=== PATIENT | male | born 1965 | race Caucasian/White ===

== ENCOUNTER 2016-09-21 14:09 | Observation (INO) | payer MEDICAID, OTHER ==
[2016-09-21 14:10] VITALS: PULSE 105
[2016-09-21 14:22] VITALS: BMI 42.8
[2016-09-21] MEDS ORDERED: Tetanus/Diphtheria Toxoids 0.5 ml Syringe IM ONE ×2 (15:11→16:22)
--- NOTE | 2016-09-21 15:27 | C.PDOC ---
History Of Present Illness 51 year old patient, with a past medical history of hypertension, A-fib, CHF, and bronchitis, presents to the ED complaining of an injury to his left index finger prior to arrival. Patient states he dropped a heavy object on his finger , then he had a sudden onset of chest pain. Patient denies shortness of breath, numbness, or weakness. Time Seen by Provider: 09/21/16 15:03 Chief Complaint (Nursing): Chest Pain History Per: Patient History/Exam Limitations: no limitations Onset/Duration Of Symptoms: Mins (prior to arrival) Current Symptoms Are (Timing): Still Present Context: Other Severity: Mild Pain Scale Rating Of: 3 Quality: "Pain" Modifying Factors: None Exacerbating Factors: None Alleviating Factors: None Recent travel outside of the [place]: No Past Medical History Reviewed: Historical Data, Nursing Documentation, Vital Signs Vital Signs: Last Vital Signs Temp 98.3 F 09/21/16 14:32 Pulse 94 H 09/21/16 17:25 Resp 18 09/21/16 17:25 BP 124/81 09/21/16 17:25 Pulse Ox 95 09/21/16 18:15 - Medical History PMH: Atrial Fibrillation, Bronchitis, CHF, HTN Surgical History: Pacemaker (03/04/16) Family History: States: Unknown Family Hx - Social History Hx Tobacco Use: No Hx Alcohol Use: Yes Hx Substance Use: Yes - Immunization History Hx Tetanus Toxoid Vaccination: Yes Hx Influenza Vaccination: Yes Hx Pneumococcal Vaccination: Yes Review Of Systems Except As Marked, All Systems Reviewed And Found Negative. Cardiovascular: Positive for: Chest Pain Respiratory: Negative for: Shortness of Breath Musculoskeletal: Positive for: Hand Pain (left index finger) Neurological: Negative for: Weakness, Numbness Physical Exam - Physical Exam Appears: Non-toxic, No Acute Distress Skin: Warm, Dry Head: Atraumatic, Normacephalic Eye(s): bilateral: Normal Inspection Oral Mucosa: Moist Neck: Normal ROM, Supple Chest: Symmetrical, No Tenderness Cardiovascular: Rhythm Regular Respiratory: Normal Breath Sounds, No Rales, No Rhonchi, No Wheezing Gastrointestinal/Abdominal: Soft, No Tenderness Back: Normal Inspection, No CVA Tenderness Extremity: Normal ROM, Capillary Refill (<2 seconds), Other (left index finger: 5 mm superficial laceration to the mid-phalanx; no deformities or swelling or active bleeding) Neurological/Psych: Oriented x3, Normal Motor, Normal Sensation Gait: Steady ED Course And Treatment - Laboratory Results Result Diagrams: 09/21/16 15:52 09/21/16 15:52 ECG: Interpreted By Me, Viewed By Me ECG Rhythm: Atrial Fibrillation Rate From EC (bpm) O2 Sat by Pulse Oximetry: 95 (room air) Pulse Ox Interpretation: Normal - Radiology CXR: Interpreted by Me, Viewed By Me CXR Interpretation: Yes: No Acute Disease - Other Rad left 2nd digit x-ray X-Ray: Interpreted by Me, Viewed By Me Interpretation: No fractures or dislocations Progress Note: Plan: Labs, Chest x-ray, Tetanus, Left 2nd digit x-ray. Wound was cleaned and dressed. Case discussed with Dr. Martinez who is aware of the plan and will admit the patient for tele-obs. 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 - Scribe Statement The provider has reviewed the documentation as recorded by the Scribe Ange Skelton All medical record entries made by the Scribe were at my direction and personally dictated by me. I have reviewed the chart and agree that the record accurately reflects my personal performance of the history, physical exam, medical decision making, and the department course for this patient. I have also personally directed, reviewed, and agree with the discharge instructions and disposition. Decision To Admit - Pt Status Changed To: Hospital Disposition Of: Observation - . Bed Request Type: Telemetry Admitting Physician: Zenon Martinez Jr. Patient Diagnosis: Chest pain, Finger injury, Afib
[2016-09-21 16:06] LABS: CHLORIDE 99 mmol/L (98-107)
[2016-09-21 16:07] LABS: POTASSIUM 4.1 mmol/L (3.6-5.2); SODIUM 140 mmol/L (132-148)
[2016-09-21 16:09] LABS: ALB/GLOB RATIO 1.3 (1.0-2.1); ALKALINE PHOSPHATASE 68 U/L (38-126); AST/SGOT 15 U/L (17-59); BILIRUBIN,TOTAL 0.6 mg/dL (0.2-1.3); BLOOD UREA NITROGEN 17 mg/dL (9-20); CARBON DIOXIDE 30 mmol/L (22-30); GFR AFRICAN-AMERICAN > 60; TOTAL PROTEIN 7.1 g/dL (6.3-8.3)
[2016-09-21 16:10] LABS: ALT/SGPT 21 U/L (21-72); CALCIUM 8.6 mg/dl (8.6-10.4); GLUCOSE,RANDOM 95 mg/dL (75-110)
[2016-09-21 16:14] LABS: BASO % 0.5 % (0.0-2.0); EOS # 0.2 K/uL (0.0-0.7); EOS % 2.1 % (0.0-4.0); HEMATOCRIT 44.2 % (35.0-51.0); LYMPH # 1.8 K/uL (1.0-4.3); LYMPH % 19.6 % (20.0-40.0); MEAN CELL VOLUME 80.8 fL (80.0-94.0); MEAN CORPUSCULAR HEMOGLOBIN 25.8 pg (27.0-31.0); MEAN CORPUSCULAR HGB CONC 31.9 g/dL (33.0-37.0); MEAN PLATELET VOLUME 8.1 fL (7.2-11.7); MONO # 0.7 K/uL (0.0-0.8); MONO % 7.7 % (0.0-10.0); NRBC % 0.1 % (0.0-2.0); WHITE BLOOD COUNT 9.4 K/uL (4.8-10.8)
--- NOTE | 2016-09-21 16:21 | RAD ---
PROCEDURE: CHEST RADIOGRAPH, 1 VIEW HISTORY: CP COMPARISON: 03/03/2016 FINDINGS: LUNGS: Clear. PLEURA: No pneumothorax or pleural fluid seen. CARDIOVASCULAR: AICD OSSEOUS STRUCTURES: No significant abnormalities. VISUALIZED UPPER ABDOMEN: Normal. OTHER FINDINGS: None. IMPRESSION: No active disease.
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
[2016-09-21 21:15] VITALS: RESP 20
[2016-09-22 04:32] LABS: BASO % 0.5 % (0.0-2.0); EOS # 0.2 K/uL (0.0-0.7); EOS % 2.9 % (0.0-4.0); HEMATOCRIT 44.7 % (35.0-51.0); LYMPH # 1.7 K/uL (1.0-4.3); LYMPH % 21.7 % (20.0-40.0); MEAN CELL VOLUME 80.8 fL (80.0-94.0); MEAN CORPUSCULAR HEMOGLOBIN 25.6 pg (27.0-31.0); MEAN CORPUSCULAR HGB CONC 31.7 g/dL (33.0-37.0); MEAN PLATELET VOLUME 8.1 fL (7.2-11.7); MONO # 0.6 K/uL (0.0-0.8); MONO % 7.2 % (0.0-10.0); RED CELL DISTRIBUTION WIDTH 15.3 % (11.5-14.5); WHITE BLOOD COUNT 7.9 K/uL (4.8-10.8)
[2016-09-22 04:42] LABS: CHLORIDE 99 mmol/L (98-107); POTASSIUM 3.9 mmol/L (3.6-5.2); SODIUM 140 mmol/L (132-148)
[2016-09-22 04:44] LABS: CARBON DIOXIDE 32 mmol/L (22-30); CHOLESTEROL 138 mg/dL (0-199); GFR AFRICAN-AMERICAN > 60
[2016-09-22 04:45] LABS: ALB/GLOB RATIO 1.3 (1.0-2.1); ALKALINE PHOSPHATASE 71 U/L (38-126); ALT/SGPT 25 U/L (21-72); AST/SGOT 15 U/L (17-59); BILIRUBIN,TOTAL 0.5 mg/dL (0.2-1.3); BLOOD UREA NITROGEN 15 mg/dL (9-20); CALCIUM 8.6 mg/dl (8.6-10.4); GLUCOSE,RANDOM 100 mg/dL (75-110)
--- NOTE | 2016-09-22 07:09 | CP.PCM.PN ---
Objective - Vital Signs/Intake and Output Vital Signs (last 24 hours): Temp Pulse Resp BP Pulse Ox 98.0 F 80 20 135/92 H 96 09/22/16 04:51 09/22/16 04:51 09/22/16 04:51 09/22/16 04:51 09/22/16 04:51 Intake and Output: 09/22/16 09/22/16 06:59 18:59 Intake Total 700 Balance 700 - Medications Medications: Current Medications Apixaban (Eliquis) 5 mg PO BID [facility] Last Admin: 09/21/16 19:50 Dose: 5 mg Digoxin (Lanoxin) 0.125 mg PO DAILY@1800 [facility] Diltiazem HCl (Cardizem) 60 mg PO QID [facility] Last Admin: 09/21/16 22:42 Dose: 60 mg Furosemide (Lasix) 20 mg PO DAILY [facility] Metoprolol Succinate (Toprol Xl) 100 mg PO DAILY [facility] Pantoprazole Sodium (Protonix Ec Tab) 40 mg PO DAILY [facility] - Labs Labs: 09/22/16 04:27 09/22/16 04:27 APTT 37 SECONDS (21-34) H 09/21/16 15:52
[2016-09-22 08:25] VITALS: PULSE 74; TEMP 97.4; O2SAT 100
[2016-09-22 09:16] VITALS: BP 143/87
--- NOTE | 2016-09-22 09:26 | RAD ---
Left hand 2nd digit three views History: Injury. Comparison: None available. Findings: Prominent soft tissue swelling seen at the level of the 2nd digit. No evidence of discrete radiopaque foreign body. Prominent narrowing of the DIP joint space with bony hypertrophy. Moderate narrowing of the PIP joint space with bony hypertrophy. Noted are degenerative changes at the 3rd through 5th PIP and DIP joint spaces. Radiocarpal joint space narrowing is noted. Impression: Degenerative changes. Negative acute. If pain persists, consider MRI.
[2016-09-22] MEDS ORDERED: Pantoprazole 40 mg EC Tab PO SCH (10:00)
[2016-09-22] MEDS ORDERED: Metoprolol Succinate 100 mg XL Tab PO SCH (10:00)
--- NOTE | 2016-09-22 12:03 | CP.PCM.DIS ---
Provider - Provider Date of Admission: 09/21/16 18:34 Attending physician: Zenon Martinez Jr, MD Primary care physician: Dr. Garcia Time Spent in preparation of Discharge (in minutes): 45 Hospital Course - Lab Results Lab Results: Most Recent Lab Values WBC 7.9 K/uL (4.8-10.8) 09/22/16 04:27 RBC 5.53 Mil/uL (4.40-5.90) 09/22/16 04:27 Hgb 14.2 g/dL (12.0-18.0) 09/22/16 04:27 Hct 44.7 % (35.0-51.0) 09/22/16 04:27 MCV 80.8 fL (80.0-94.0) 09/22/16 04:27 MCH 25.6 pg (27.0-31.0) L 09/22/16 04:27 MCHC 31.7 g/dL (33.0-37.0) L 09/22/16 04:27 RDW 15.3 % (11.5-14.5) H 09/22/16 04:27 Plt Count 151 K/uL (130-400) 09/22/16 04:27 MPV 8.1 fL (7.2-11.7) 09/22/16 04:27 Neut % (Auto) 67.7 % (50.0-75.0) 09/22/16 04:27 Lymph % (Auto) 21.7 % (20.0-40.0) 09/22/16 04:27 Cooper % (Auto) 7.2 % (0.0-10.0) 09/22/16 04:27 Eos % (Auto) 2.9 % (0.0-4.0) 09/22/16 04:27 Baso % (Auto) 0.5 % (0.0-2.0) 09/22/16 04:27 Neut # 5.3 K/uL (1.8-7.0) 09/22/16 04:27 Lymph # 1.7 K/uL (1.0-4.3) 09/22/16 04:27 Cooper # 0.6 K/uL (0.0-0.8) 09/22/16 04:27 Eos # 0.2 K/uL (0.0-0.7) 09/22/16 04:27 Baso # 0.0 K/uL (0.0-0.2) 09/22/16 04:27 APTT 37 SECONDS (21-34) H 09/21/16 15:52 Sodium 140 mmol/L (132-148) 09/22/16 04:27 Potassium 3.9 mmol/L (3.6-5.2) 09/22/16 04:27 Chloride 99 mmol/L (98-107) 09/22/16 04:27 Carbon Dioxide 32 mmol/L (22-30) H 09/22/16 04:27 Anion Gap 13 (10-20) 09/22/16 04:27 BUN 15 mg/dL (9-20) 09/22/16 04:27 Creatinine 0.8 MG/DL (0.8-1.5) 09/22/16 04:27 Est GFR ( Amer) > 60 09/22/16 04:27 Est GFR (Non-Af Amer) > 60 09/22/16 04:27 POC Glucose (mg/dL) 105 mg/dL (65-110) 09/22/16 11:19 Random Glucose 100 mg/dL (75-110) 09/22/16 04:27 Calcium 8.6 mg/dl (8.6-10.4) 09/22/16 04:27 Total Bilirubin 0.5 mg/dL (0.2-1.3) 09/22/16 04:27 AST 15 U/L (17-59) L 09/22/16 04:27 ALT 25 U/L (21-72) 09/22/16 04:27 Alkaline Phosphatase 71 U/L (38-126) 09/22/16 04:27 Total Creatine Kinase 57 U/L (55-170) 09/22/16 04:27 CK-MB (Mass) 0.64 ng/mL (0.0-3.38) 09/22/16 04:27 Troponin I < 0.0120 ng/mL (0.00-0.120) 09/21/16 15:52 Troponin I, Quant < 0.0120 ng/mL (0.00-0.120) 09/22/16 04:27 Total Protein 7.0 g/dL (6.3-8.3) 09/22/16 04:27 Albumin 3.9 g/dL (3.5-5.0) 09/22/16 04:27 Globulin 3.1 gm/dL (2.2-3.9) 09/22/16 04:27 Albumin/Globulin Ratio 1.3 (1.0-2.1) 09/22/16 04:27 Triglycerides 156 mg/dL (0-149) H 09/22/16 04:27 Cholesterol 138 mg/dL (0-199) 09/22/16 04:27 LDL Cholesterol Direct 82 mg/dL (0-129) 09/22/16 04:27 HDL Cholesterol 27 mg/dL (30-70) L 09/22/16 04:27 - Hospital Course Hospital Course: Upon Admission: 51 year old male with PMHx of CHF w AICD placement, chronic a.fib, IGT, sleep apnea presenting to the hospital after dropping a heavy object on his finger. He said the moment the object dropped on his finger, he began to feel substernal chest pain, sharp. He said it was only momentary, and he feels no pain now. He denies any palpitations, dyspnea. He reports he is compliant with his medication. Patient was admitted to TELE. Patient had negative KG and EKG x 3 and reported that chest pain had resolved in the ER. CXR was unremarkable and Hand x -ray showed no acute fractures. On day of discharge patient was deemed medically stable for discharge. 1) Chest pain: resolved 2) Atrial Fibrillation: chronic 3) Finger trauma: resolved Upon Discharge Patient stable for discharge home as per Dr. Martinez. Patient to resume all home medications. Patient to follow up with PMD Dr. Martinez within 7 days. Address: [address] [place] [address] [address] floor. [place] [id number] If symptoms persist or worsen patient to visit ER immediately. Instructions discussed in detail with patient who understands and agrees. Discharge Exam - Head Exam Head Exam: ATRAUMATIC, NORMAL INSPECTION, NORMOCEPHALIC - Eye Exam Eye Exam: EOMI, Normal appearance, PERRL. absent: Conjunctival injection, Scleral icterus Pupil Exam: NORMAL ACCOMODATION - ENT Exam ENT Exam: Mucous Membranes Moist - Neck Exam Neck exam: Full Rom, Normal Inspection - Respiratory Exam Respiratory Exam: Clear to PA & Lateral, NORMAL BREATHING PATTERN, UNREMARKABLE. absent: Accessory Muscle Use, Rales, Rhonchi, Wheezes, Respiratory Distress - Cardiovascular Exam Cardiovascular Exam: Irregular Rhythm, +S1, +S2. absent: Bradycardia, Tachycardia, Systolic Murmur - GI/Abdominal Exam GI & Abdominal Exam: Normal Bowel Sounds, Soft. absent: Firm, Guarding, Rigid, Tenderness - Extremities Exam Extremities exam: normal capillary refill, normal inspection, pedal pulses present Additional comments: left index finger wrapped in gauze- c/d/i - Back Exam Back exam: FULL ROM, NORMAL INSPECTION. absent: CVA tenderness (L), CVA tenderness (R), tenderness - Neurological Exam Neurological exam: Alert, CN II-XII Intact, Normal Gait, Oriented x3 - Psychiatric Exam Psychiatric exam: Normal Affect, Normal Mood - Skin Skin Exam: Dry, Intact, Normal Color, Warm Discharge Plan - Follow Up Plan Condition: FAIR Disposition: HOME/ ROUTINE Instructions: Heart Failure (DC), Chest Pain (DC), Heart Healthy Diet (DC) Additional Instructions: Patient stable for discharge home as per Dr. Martinez. Patient to resume all home medications. Patient to follow up with PMD Dr. Martinez within 7 days. Address: [address] [place] [address] [address]rd floor. [place] [phone] If symptoms persist or worsen patient to visit ER immediately. Instructions discussed in detail with patient who understands and agrees. Referrals: Zenon Martinez Jr., MD [Medical Doctor] -
[2016-09-22] MEDS ORDERED: Digoxin 125 mcg (0.125 mg) Tab PO SCH (18:00)
--- NOTE | 2016-09-23 08:50 | CARD ---
APPROVED REPORT EKG Measurement Heart [id number] <Conclusion> Atrial fibrillation Nonspecific T wave abnormality Abnormal ECG
== END 2016-09-22 13:18 | disposition home or self-care (01) ==
LOC: C.ER 14:09 → C.9E 18:34 → C.6T 19:46
PROVIDERS: ADMIT Internal Medicine; ATTEND Internal Medicine
DX: R07.9 Chest pain, unspecified (principal); I48.2 Chronic atrial fibrillation; I11.0 Hypertensive heart disease with heart failure; I50.9 Heart failure, unspecified; Z87.891 Personal history of nicotine dependence; Z95.810 Presence of automatic (implantable) cardiac defibrillator; Z23 Encounter for immunization; G47.30 Sleep apnea, unspecified; E66.01 Morbid (severe) obesity due to excess calories; Z68.41 Body mass index [BMI] 40.0-44.9, adult; S67.191A Crushing injury of left index finger, initial encounter; X58.XXXA Exposure to other specified factors, initial encounter
CPT/HCPCS: 36415; 71010; 73140; 80053; 80061; 82550; 82948; 83036; 84484; 85025; 85730; 90471; 90714; 93005; 99285; G0378

== ENCOUNTER 2016-12-08 14:54 | Observation (INO) | payer OTHER | END 2016-12-09 18:15 | disposition home or self-care (01) | LOC: C.ER 14:54 → C.9E 19:10 → C.6T 20:46 | PROVIDERS: ADMIT Hospitalist | CPT/HCPCS: 36415; 71010; 80053; 80061; 81001; 83036; 83735; 83880; 84100; 84439; 84443; 84484; 85025; 85610; 85730; 93005; 93306; 94640; 94660; 96374; 97116; 97161; 97530; 99285; G0378; G8978; G8979; G8980; J1940 ==

== ENCOUNTER 2017-07-09 14:21 | Emergency (ER) | payer MEDICAID ==
[2017-07-09 14:22] VITALS: PULSE 105; BMI 44.6
[2017-07-09 14:37] VITALS: RESP 20
[2017-07-09] MEDS ORDERED: DiphenhydrAMINE 50 mg/ml Inj IVP STA (15:53)
[2017-07-09] MEDS ORDERED: DiphenhydrAMINE 50 mg/ml Inj ONE (16:00)
--- NOTE | 2017-07-09 16:09 | C.PDOC ---
History Of Present Illness 51 y/o male with a PMHx of obstructive sleep apnea and congestive heart failure , presents complaining of a right-sided headache, radiating to neck and right upper arm for 1 month. Headache had gradual onset, no thunder clap. Not the worst headache of his life. Patient reports he was seen at an ER about 1 month ago and was diagnosed with strain of the upper neck. Also reports having numbness to right upper arm. Taking Tylenol without relief. Pain is described as constant. Denies any loss in vision, recent URI symptoms, chest pain, or focal weakness. Time Seen by Provider: 07/09/17 15:08 Chief Complaint (Nursing): Weakness/Neurological Deficit History Per: Patient History/Exam Limitations: no limitations Onset/Duration Of Symptoms: Days (x 1 month) Current Symptoms Are (Timing): Still Present Past Medical History Reviewed: Historical Data, Nursing Documentation, Vital Signs Vital Signs: Last Vital Signs Temp 98.9 F 07/09/17 14:33 Pulse 89 07/09/17 14:33 Resp 20 07/09/17 14:33 BP 122/77 07/09/17 14:33 Pulse Ox 95 07/09/17 17:33 - Medical History PMH: Atrial Fibrillation, Bronchitis, CHF, HTN, Sleep Apnea Denies: Chronic Kidney Disease Surgical History: Pacemaker (03/04/16) Family History: States: Unknown Family Hx - Social History Hx Tobacco Use: No Hx Alcohol Use: No Hx Substance Use: Yes ([id number]) - Immunization History Hx Tetanus Toxoid Vaccination: Yes Hx Influenza Vaccination: Yes (8 months ago) Hx Pneumococcal Vaccination: Yes (8 months) Review Of Systems Except As Marked, All Systems Reviewed And Found Negative. Eyes: Negative for: Vision Change ENT: Negative for: Nose Congestion, Throat Pain Cardiovascular: Negative for: Chest Pain Respiratory: Negative for: Cough, Shortness of Breath Musculoskeletal: Positive for: Neck Pain (right-sided), Arm Pain (right arm pain and numbness) Neurological: Positive for: Headache (right-sided). Negative for: Weakness Physical Exam - Physical Exam Appears: Non-toxic, No Acute Distress Skin: Normal Color, Warm, Dry Head: Atraumatic, Normacephalic Eye(s): bilateral: Normal Inspection, PERRL, EOMI Nose: Normal Oral Mucosa: Moist Neck: Normal ROM, Paracervical Tenderness (and muscle spasm to the right trapezius), Supple Chest: Symmetrical Cardiovascular: Rhythm Regular, No Murmur Respiratory: Normal Breath Sounds, No Accessory Muscle Use Gastrointestinal/Abdominal: Soft, No Tenderness, No Distention Extremity: Bilateral: Atraumatic, Normal Color And Temperature, Normal ROM Neurological/Psych: Oriented x3, Normal Speech, Normal Cranial Nerves, Normal Motor, Normal Sensation, No Other (facial droop) Gait: Steady ED Course And Treatment O2 Sat by Pulse Oximetry: 95 (RA) Pulse Ox Interpretation: Normal - Other Rad C-Spine X-Ray X-Ray: Viewed By Me, Read By Radiologist Interpretation: FINDINGS: BONES: The cervical spine is not well-visualized beyond C6 on lateral view. Straightening of the normal cervical lordosis may be related to muscle spasm or positioning. Multilevel degenerative changes including osteophyte formation. No listhesis. No acute displaced fracture identified. Dens tip partially obscured. DISC SPACES: Unremarkable. SOFT TISSUES: Unremarkable. No prevertebral soft tissue swelling. OTHER FINDINGS: None. IMPRESSION: Limited study as above. Straightening of the normal cervical lordosis may be related to muscle spasm or positioning. - CT Scan/US CT Head Other Rad Studies (CT/US): Read By Radiologist, Radiology Report Reviewed CT/US Interpretation: FINDINGS: HEMORRHAGE: No intracranial hemorrhage. BRAIN : No mass effect or edema. No atrophy or chronic microvascular ischemic changes. VENTRICLES: Unremarkable. No hydrocephalus. CALVARIUM: Unremarkable. PARANASAL SINUSES: Mild chronic ethmoid sinusitis. Small left maxillary retention cyst/polyp. MASTOID AIR CELLS: Unremarkable as visualized. No inflammatory changes. OTHER FINDINGS: None. IMPRESSION: No intracranial mass, hemorrhage or evidence of acute infarct. Mild chronic ethmoid sinusitis. Medical Decision Making Medical Decision Making: Initial Impression: Headache, Neck pain Time: 15:51 Initial Plan: * Reglan 10 mg IVP * Benadryl 25 mg IVP * X-ray cervical spine * CT Head W/O contrast * Reevaluation Patient informed of negative imaging results. 17:21 On reevaluation patient reports he feels better. Counseled regarding diagnosis of headache and cervical radiculopathy. Will d/c patient with follow up at the medical clinic in 2 days. Advised to return to the ED if symptoms worsen or progress. Disposition Counseled Patient/Family Regarding: Studies Performed, Diagnosis, Need For Followup, Rx Given - Disposition Referrals: Kylie Garcia MD [Staff Provider] - Disposition: HOME/ ROUTINE Disposition Time: 17:21 Condition: STABLE Additional Instructions: follow up with clinic in 2 days call to make an appointment take medications as prescribed return to ER if symptoms worsens or progress Prescriptions: Acetaminophen/Codeine [Tylenol/Codeine 300 MG/30 MG] 1 tab PO Q6H PRN #12 tab PRN Reason: Pain, Severe (8-10) Cyclobenzaprine [Cyclobenzaprine HCl] 10 mg PO TID PRN #12 tab PRN Reason: Muscle Spasm Naproxen [Naprosyn] 500 mg PO BID PRN #16 tab PRN Reason: Pain, Moderate (4-7) Instructions: Radiculopathy (DC), Headache, Adult (DC) Forms: Gen Discharge Inst [place], [employer] ([place]) Print Language: BRITISH - Clinical Impression Clinical Impression: Cervical radiculopathy, Headache - Scribe Statement The provider has reviewed the documentation as recorded by the Kenrick Sharpe Provider Attestation: All medical record entries made by the Kenrick were at my direction and personally dictated by me. I have reviewed the chart and agree that the record accurately reflects my personal performance of the history, physical exam, medical decision making, and the department course for this patient. I have also personally directed, reviewed, and agree with the discharge instructions and disposition.
--- NOTE | 2017-07-09 16:36 | CT ---
PROCEDURE: CT HEAD WITHOUT CONTRAST. HISTORY: headache COMPARISON: None available. TECHNIQUE: Axial computed tomography images were obtained through the head/brain without intravenous contrast. Radiation dose: Total exam DLP = 1372.47 mGy-cm. This CT exam was performed using one or more of the following dose reduction techniques: Automated exposure control, adjustment of the mA and/or kV according to patient size, and/or use of iterative reconstruction technique. FINDINGS: HEMORRHAGE: No intracranial hemorrhage. BRAIN: No mass effect or edema. No atrophy or chronic microvascular ischemic changes. VENTRICLES: Unremarkable. No hydrocephalus. CALVARIUM: Unremarkable. PARANASAL SINUSES: Mild chronic ethmoid sinusitis. Small left maxillary retention cyst/polyp. MASTOID AIR CELLS: Unremarkable as visualized. No inflammatory changes. OTHER FINDINGS: None. IMPRESSION: No intracranial mass, hemorrhage or evidence of acute infarct. Mild chronic ethmoid sinusitis.
--- NOTE | 2017-07-09 17:15 | RAD ---
PROCEDURE: Cervical Spine Radiographs. HISTORY: Pain. COMPARISON: None available. FINDINGS: BONES: The cervical spine is not well-visualized beyond C6 on lateral view. Straightening of the normal cervical lordosis may be related to muscle spasm or positioning. Multilevel degenerative changes including osteophyte formation. No listhesis. No acute displaced fracture identified. Dens tip partially obscured. DISC SPACES: Unremarkable. SOFT TISSUES: Unremarkable. No prevertebral soft tissue swelling. OTHER FINDINGS: None. IMPRESSION: Limited study as above. Straightening of the normal cervical lordosis may be related to muscle spasm or positioning.
[2017-07-09 17:37] VITALS: BP 127/72; PULSE 80; TEMP 98.4
[2017-07-12 15:46] VITALS: O2SAT 95
== END 2017-07-09 17:38 | disposition home or self-care (01) ==
LOC: C.ER 14:21
DX: M54.12 Radiculopathy, cervical region (principal); R51 Headache; I48.91 Unspecified atrial fibrillation; I50.9 Heart failure, unspecified; I10 Essential (primary) hypertension; G47.33 Obstructive sleep apnea (adult) (pediatric)
CPT/HCPCS: 70450; 72040; 96374; 96375; 99285; J1200; J1885; J2765

== ENCOUNTER 2017-07-20 10:12 | Inpatient (IN) | payer MEDICAID ==
[2017-07-20 10:13] VITALS: PULSE 105; BMI 44.6
[2017-07-20] MEDS ORDERED: Aspirin 325 mg EC Tablets PO STA (10:24)
[2017-07-20 10:44] LABS: BASO # 0.1 K/uL (0.0-0.2); BASO % 0.9 % (0.0-2.0); EOS # 0.1 K/uL (0.0-0.7); EOS % 1.5 % (0.0-4.0); HEMOGLOBIN 15.8 g/dL (12.0-18.0); LYMPH # 1.8 K/uL (1.0-4.3); LYMPH % 18.7 % (20.0-40.0); MEAN CELL VOLUME 82.2 fL (80.0-94.0); MEAN CORPUSCULAR HEMOGLOBIN 26.5 pg (27.0-31.0); MEAN CORPUSCULAR HGB CONC 32.3 g/dL (33.0-37.0); MONO # 0.7 K/uL (0.0-0.8); MONO % 7.1 % (0.0-10.0); NEUT # 6.8 K/uL (1.8-7.0); NEUT % 71.8 % (50.0-75.0); NRBC % 0.1 % (0.0-2.0); RBC 5.97 Mil/uL (4.40-5.90); RED CELL DISTRIBUTION WIDTH 14.7 % (11.5-14.5); WHITE BLOOD COUNT 9.5 K/uL (4.8-10.8)
--- NOTE | 2017-07-20 10:59 | RAD ---
PROCEDURE: CHEST RADIOGRAPH, 1 VIEW HISTORY: Chest pain COMPARISON: 12/08/2016. FINDINGS: LUNGS: The lungs are well inflated and clear. No focal consolidation. PLEURA: No pneumothorax or pleural fluid seen. CARDIOVASCULAR: Again seen is mild cardiomegaly. There is a left-sided AICD. OSSEOUS STRUCTURES: No significant abnormalities. VISUALIZED UPPER ABDOMEN: Normal. OTHER FINDINGS: None. IMPRESSION: No acute findings.
[2017-07-20 11:06] LABS: ALB/GLOB RATIO 1.2 (1.0-2.1); ALBUMIN 4.2 g/dL (3.5-5.0); ALT/SGPT 42 U/L (21-72); AST/SGOT 26 U/L (17-59); BLOOD UREA NITROGEN 15 mg/dL (9-20); CALCIUM 8.9 mg/dl (8.6-10.4); GFR AFRICAN-AMERICAN > 60; GFR NON-AFRICAN AMERICAN > 60
[2017-07-20 11:17] LABS: B-TYPE NATRIURETIC PEPTIDE 830 pg/mL (0-900)
[2017-07-20] MEDS ORDERED: Potassium Chloride 20 mEq ER Tab PO STA (12:50)
[2017-07-20] MEDS ORDERED: Potassium Chloride 20 mEq ER Tab PO ONE (12:54)
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
--- NOTE | 2017-07-20 15:16 | C.PDOC ---
History Of Present Illness 51-year-old male, PMHx includes sleep apnea, atrial fibrillation and systolic heart failure requiring pacemaker placement, presents to the emergency department with complaints of being shocked 3x this morning by his pacemaker. He denies fevers, chills, nausea, vomiting, chest pain, shortness of breath, diarrhea. Time Seen by Provider: 07/20/17 10:23 Chief Complaint (Nursing): Chest Pain History Per: Patient History/Exam Limitations: no limitations Past Medical History Reviewed: Historical Data, Nursing Documentation, Vital Signs Vital Signs: Last Vital Signs Temp 98.1 F 07/21/17 04:02 Pulse 84 07/21/17 04:31 Resp 20 07/21/17 04:02 BP 131/90 07/21/17 04:02 Pulse Ox 97 07/21/17 08:10 - Medical History PMH: Atrial Fibrillation, Bronchitis, CHF, HTN, Sleep Apnea Surgical History: Pacemaker (03/04/16) Family History: States: No Known Family Hx - Social History Hx Tobacco Use: No Hx Alcohol Use: Yes Hx Substance Use: Yes ([id number]) - Immunization History Hx Tetanus Toxoid Vaccination: Yes Hx Influenza Vaccination: Yes (8 months ago) Hx Pneumococcal Vaccination: Yes (8 months) Review Of Systems Except As Marked, All Systems Reviewed And Found Negative. Constitutional: Negative for: Fever Cardiovascular: Negative for: Chest Pain Respiratory: Negative for: Cough, Shortness of Breath Gastrointestinal: Negative for: Vomiting Musculoskeletal: Negative for: Neck Pain, Back Pain Skin: Negative for: Rash Neurological: Negative for: Weakness, Numbness, Headache, Dizziness Physical Exam - Physical Exam Appears: Non-toxic, No Acute Distress Skin: Normal Color, Warm, Dry, No Rash Head: Normacephalic Eye(s): bilateral: PERRL Nose: Normal Oral Mucosa: Moist Lips: Normal Appearing Neck: Normal ROM Chest: Symmetrical Cardiovascular: Rhythm Regular, No Murmur Respiratory: Normal Breath Sounds, No Accessory Muscle Use Extremity: Normal ROM, No Deformity, No Swelling Neurological/Psych: Oriented x3, Normal Speech ED Course And Treatment - Laboratory Results Result Diagrams: 07/20/17 10:31 07/20/17 10:31 ECG: Interpreted By Me, Viewed By Me ECG Rhythm: Sinus Tachycardia ECG Interpretation: No Acute Changes Interpretation Of ECG: Normal intervals. Left atrial enlargement. ST segment depression, V4-V6 Rate From EC O2 Sat by Pulse Oximetry: 97 (RA) Pulse Ox Interpretation: Normal Medical Decision Making Medical Decision Making: case discussed with Dr. Yomaira Skelton and Dr. Del Valle and will admit to telemetry. Disposition Discussed With DrAlecia: Gregorio Skelton Counseled Patient/Family Regarding: Studies Performed, Diagnosis - Disposition Disposition: HOSPITALIZED Disposition Time: 12:55 Condition: FAIR - Clinical Impression Clinical Impression: Defibrillator discharge - Scribe Statement The provider has reviewed the documentation as recorded by the Scribe (Gianni Hernandez) All medical record entries made by the Scribe were at my direction and personally dictated by me. I have reviewed the chart and agree that the record accurately reflects my personal performance of the history, physical exam, medical decision making, and the department course for this patient. I have also personally directed, reviewed, and agree with the discharge instructions and disposition.
[2017-07-20 18:01] LABS: CK-MB 2.95 ng/mL (0.0-3.38)
[2017-07-20 23:20] LABS: TROPONIN I 0.068 ng/mL (0.00-0.120)
[2017-07-20 23:32] LABS: CK-MB 1.63 ng/mL (0.0-3.38)
[2017-07-21 06:47] LABS: BARBITURATES, UR NEGATIVE (NEGATIVE); BENZODIAZEPINES, UR NEGATIVE (NEGATIVE); OPIATES, UR NEGATIVE (NEGATIVE); PHENCYCLIDINE, UR NEGATIVE (NEGATIVE)
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
[2017-07-21] MEDS: Metoprolol Succinate 100 mg XL Tab PO SCH (09:39)
[2017-07-21 11:05] LABS: BASO % 0.4 % (0.0-2.0); EOS # 0.2 K/uL (0.0-0.7); EOS % 1.8 % (0.0-4.0); HEMOGLOBIN 15.4 g/dL (12.0-18.0); LYMPH # 1.8 K/uL (1.0-4.3); LYMPH % 21.6 % (20.0-40.0); MEAN CELL VOLUME 81.4 fL (80.0-94.0); MEAN CORPUSCULAR HEMOGLOBIN 26.6 pg (27.0-31.0); MEAN CORPUSCULAR HGB CONC 32.6 g/dL (33.0-37.0); MEAN PLATELET VOLUME 8.2 fL (7.2-11.7); MONO # 0.7 K/uL (0.0-0.8); NEUT # 5.8 K/uL (1.8-7.0); NEUT % 68.2 % (50.0-75.0); RBC 5.81 Mil/uL (4.40-5.90); RED CELL DISTRIBUTION WIDTH 15.2 % (11.5-14.5); WHITE BLOOD COUNT 8.5 K/uL (4.8-10.8)
[2017-07-21 11:33] LABS: ALB/GLOB RATIO 1.1 (1.0-2.1); ALBUMIN 4.3 g/dL (3.5-5.0); ALT/SGPT 29 U/L (21-72); AST/SGOT 28 U/L (17-59); BLOOD UREA NITROGEN 16 mg/dL (9-20); GFR AFRICAN-AMERICAN > 60; GFR NON-AFRICAN AMERICAN > 60
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
[2017-07-21] MEDS ORDERED: Potassium Chloride 20 mEq ER Tab PO ONE (12:45)
--- NOTE | 2017-07-21 23:32 | CARD ---
APPROVED REPORT EKG Measurement Heart [id number] <Conclusion> Sinus tachycardia Possible Left atrial enlargement ST & T wave abnormality, consider lateral ischemia Abnormal ECG
[2017-07-22 07:19] LABS: BASO % 0.5 % (0.0-2.0); EOS # 0.2 K/uL (0.0-0.7); EOS % 2.2 % (0.0-4.0); HEMOGLOBIN 15.7 g/dL (12.0-18.0); LYMPH # 1.9 K/uL (1.0-4.3); LYMPH % 22.9 % (20.0-40.0); MEAN CORPUSCULAR HEMOGLOBIN 26.9 pg (27.0-31.0); MEAN CORPUSCULAR HGB CONC 32.4 g/dL (33.0-37.0); MEAN PLATELET VOLUME 8.2 fL (7.2-11.7); MONO # 0.6 K/uL (0.0-0.8); MONO % 7.7 % (0.0-10.0); NEUT # 5.4 K/uL (1.8-7.0); NEUT % 66.7 % (50.0-75.0); NRBC % 0.3 % (0.0-2.0); RBC 5.84 Mil/uL (4.40-5.90); RED CELL DISTRIBUTION WIDTH 15.3 % (11.5-14.5); WHITE BLOOD COUNT 8.1 K/uL (4.8-10.8)
[2017-07-22 07:38] LABS: ALB/GLOB RATIO 1.1 (1.0-2.1); ALBUMIN 4.2 g/dL (3.5-5.0); ALT/SGPT 30 U/L (21-72); AST/SGOT 31 U/L (17-59); BLOOD UREA NITROGEN 15 mg/dL (9-20); CALCIUM 8.7 mg/dl (8.6-10.4); GFR AFRICAN-AMERICAN > 60; GFR NON-AFRICAN AMERICAN > 60
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
[2017-07-22 08:24] VITALS: RESP 20
[2017-07-22] MEDS: Metoprolol Succinate 100 mg XL Tab PO SCH (10:19)
[2017-07-22] MEDS: Enoxaparin 40 mg Syringe SC SCH (10:19)
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
[2017-07-23 07:02] LABS: BASO # 0.1 K/uL (0.0-0.2); BASO % 0.8 % (0.0-2.0); EOS # 0.2 K/uL (0.0-0.7); EOS % 2.3 % (0.0-4.0); LYMPH # 1.5 K/uL (1.0-4.3); LYMPH % 18.3 % (20.0-40.0); MEAN CELL VOLUME 81.7 fL (80.0-94.0); MEAN CORPUSCULAR HEMOGLOBIN 26.8 pg (27.0-31.0); MEAN CORPUSCULAR HGB CONC 32.8 g/dL (33.0-37.0); MEAN PLATELET VOLUME 7.9 fL (7.2-11.7); MONO # 0.7 K/uL (0.0-0.8); MONO % 7.8 % (0.0-10.0); NEUT % 70.8 % (50.0-75.0); RBC 5.62 Mil/uL (4.40-5.90); RED CELL DISTRIBUTION WIDTH 14.7 % (11.5-14.5); WHITE BLOOD COUNT 8.4 K/uL (4.8-10.8)
[2017-07-23 07:09] LABS: INR 1.2; PROTHROMBIN TIME 13.6 SECONDS (9.7-12.2)
[2017-07-23 07:33] LABS: ALB/GLOB RATIO 1.2 (1.0-2.1); ALBUMIN 4.2 g/dL (3.5-5.0); ALT/SGPT 41 U/L (21-72); AST/SGOT 20 U/L (17-59); BLOOD UREA NITROGEN 15 mg/dL (9-20); CALCIUM 8.9 mg/dl (8.6-10.4); GFR AFRICAN-AMERICAN > 60; GFR NON-AFRICAN AMERICAN > 60
[2017-07-23] MEDS ORDERED: Verapamil 2 ML ONE (07:41)
[2017-07-23] MEDS ORDERED: Nitroglycerin 50mg in D5W 50 MG/250 ML BOTTLE IV ONE (07:42)
[2017-07-23] MEDS ORDERED: Lidocaine 4% (Laryng-O-Jet) Kit MM ONE (07:44)
[2017-07-23] MEDS ORDERED: Midazolam 2 MG/2 ML VIAL ONE (07:48)
[2017-07-23] MEDS ORDERED: Iodixanol 320 MG/ML 200 ML BOTTLE IV ONE (07:51)
[2017-07-23 07:58] VITALS: PULSE 92; TEMP 98.7; O2SAT 97
--- NOTE | 2017-07-23 08:49 | CP.PCM.PN ---
Subjective - Date & Time of Evaluation Date of Evaluation: 07/23/17 Time of Evaluation: 08:48 - Subjective Subjective: Patient s/p LHC 1. Normal Coronaries 2. EF 20% Non ischemic cardiomyopathy Medical management Objective - Vital Signs/Intake and Output Vital Signs (last 24 hours): Temp Pulse Resp BP Pulse Ox 98.7 F 92 H 20 137/89 97 07/23/17 06:45 07/23/17 06:45 07/23/17 06:45 07/23/17 06:45 07/23/17 06:45 Intake and Output: 07/23/17 07/23/17 06:59 18:59 Intake Total 240 Balance 240 - Medications Medications: Current Medications Acetaminophen (Tylenol 325mg Tab) 650 mg PO Q6 PRN PRN Reason: Pain, moderate (4-7) Amiodarone HCl (Cordarone) 200 mg PO BID [facility] Last Admin: 07/22/17 17:26 Dose: 200 mg Aspirin (Ecotrin) 81 mg PO DAILY [facility] Last Admin: 07/22/17 10:19 Dose: 81 mg Docusate Sodium (Colace) 100 mg PO DAILY [facility] Last Admin: 07/22/17 10:19 Dose: 100 mg Enoxaparin Sodium (Lovenox) 40 mg SC DAILY [facility] Last Admin: 07/22/17 10:19 Dose: 40 mg Furosemide (Lasix) 20 mg PO DAILY [facility] Last Admin: 07/22/17 10:19 Dose: 20 mg Hydrocortisone (Anusol-Hc) 25 mg RC BID [facility] Last Admin: 07/22/17 17:26 Dose: Not Given Lisinopril (Zestril) 5 mg PO DAILY [facility] Last Admin: 07/22/17 10:19 Dose: 5 mg Metoprolol Succinate (Toprol Xl) 100 mg PO DAILY [facility] Last Admin: 07/22/17 10:19 Dose: 100 mg - Labs Labs: 07/23/17 06:58 07/23/17 06:58 PT 13.6 SECONDS (9.7-12.2) H 07/23/17 06:58 INR 1.2 07/23/17 06:58
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
[2017-07-23] MEDS: Enoxaparin 40 mg Syringe SC SCH (11:05)
[2017-07-23] MEDS: Metoprolol Succinate 100 mg XL Tab PO SCH ×2 (11:05→13:50)
[2017-07-23 13:52] VITALS: BP 143/88
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
== END 2017-07-23 14:32 | disposition home or self-care (01) | DRG 543 ==
LOC: C.ER 10:12 → C.9E 12:17 → C.6T 13:03 → OBSVTOIN 07-21 11:30 → C.6T 07-22 21:56
PROVIDERS: ADMIT Family Medicine; ATTEND Family Medicine
PROC: 4A023N7 Measurement of Cardiac Sampling and Pressure, Left Heart, Percutaneous Approach (ICD-10-PCS; principal; 2017-07-21)
PROC: B2111ZZ Fluoroscopy of Multiple Coronary Arteries using Low Osmolar Contrast (ICD-10-PCS; 2017-07-21)
DX: I42.0 Dilated cardiomyopathy (principal); I50.22 Chronic systolic (congestive) heart failure; I47.2 Ventricular tachycardia; I11.0 Hypertensive heart disease with heart failure; Z68.41 Body mass index [BMI] 40.0-44.9, adult; E87.6 Hypokalemia; I48.91 Unspecified atrial fibrillation; K59.00 Constipation, unspecified; K64.4 Residual hemorrhoidal skin tags; Z79.01 Long term (current) use of anticoagulants; G47.30 Sleep apnea, unspecified; Z87.891 Personal history of nicotine dependence; Z95.0 Presence of cardiac pacemaker; Z95.810 Presence of automatic (implantable) cardiac defibrillator; E78.5 Hyperlipidemia, unspecified; F12.90 Cannabis use, unspecified, uncomplicated; G47.00 Insomnia, unspecified

== ENCOUNTER 2017-08-20 09:21 | Emergency (ER) | payer MEDICAID ==
[2017-08-20 09:21] VITALS: PULSE 105; BMI 47.0
[2017-08-20 09:27] VITALS: O2SAT 95
[2017-08-20] MEDS ORDERED: Sodium Chloride 0.9% 500 ML IV ONE ×2 (09:44→10:02)
[2017-08-20 10:19] LABS: BASO % 0.5 % (0.0-2.0); EOS # 0.2 K/uL (0.0-0.7); EOS % 2.8 % (0.0-4.0); HEMOGLOBIN 14.4 g/dL (12.0-18.0); LYMPH # 1.3 K/uL (1.0-4.3); LYMPH % 20.6 % (20.0-40.0); MEAN CELL VOLUME 82.3 fL (80.0-94.0); MEAN CORPUSCULAR HEMOGLOBIN 26.8 pg (27.0-31.0); MEAN CORPUSCULAR HGB CONC 32.6 g/dL (33.0-37.0); MEAN PLATELET VOLUME 7.7 fL (7.2-11.7); MONO # 0.4 K/uL (0.0-0.8); MONO % 5.7 % (0.0-10.0); NEUT # 4.5 K/uL (1.8-7.0); NEUT % 70.4 % (50.0-75.0); RBC 5.36 Mil/uL (4.40-5.90); RED CELL DISTRIBUTION WIDTH 14.8 % (11.5-14.5); WHITE BLOOD COUNT 6.4 K/uL (4.8-10.8)
[2017-08-20 10:25] LABS: INR 1.1; PROTHROMBIN TIME 12.8 SECONDS (9.7-12.2)
[2017-08-20 10:37] LABS: ALB/GLOB RATIO 1.2 (1.0-2.1); ALBUMIN 4.1 g/dL (3.5-5.0); ALT/SGPT 28 U/L (21-72); AST/SGOT 27 U/L (17-59); BLOOD UREA NITROGEN 13 mg/dL (9-20); GFR AFRICAN-AMERICAN > 60; GFR NON-AFRICAN AMERICAN > 60
--- NOTE | 2017-08-20 10:40 | C.PDOC ---
History Of Present Illness 52 year old male presents to the emergency department complaining of hematuria and dysuria since last night. He was seen in Dr. Mark's office yesterday for the first time and had a prostate exam. Patient was initially referred to Dr. Mark due to high PSA level on labs. He denies any fever, vomiting, diarrhea, or prior episodes of hematuria. Time Seen by Provider: 08/20/17 09:35 Chief Complaint (Nursing): Male Genitourinary History Per: Patient History/Exam Limitations: no limitations Onset/Duration Of Symptoms: Days (x2) Current Symptoms Are (Timing): Still Present Past Medical History Reviewed: Historical Data, Nursing Documentation, Vital Signs Vital Signs: Last Vital Signs Temp 98.3 F 08/20/17 09:25 Pulse 84 08/20/17 09:25 Resp 19 08/20/17 09:25 BP 130/75 08/20/17 09:25 Pulse Ox 95 08/20/17 12:07 - Medical History PMH: Atrial Fibrillation, Bronchitis, CHF, HTN, Chronic Kidney Disease, Sleep Apnea Surgical History: Pacemaker (03/04/16) - [facility] Procedures FLUOROSCOPY OF MULT COR ART USING L OSM CONTRAST (07/21/17) MEASURE OF CARDIAC SAMPL & PRESSURE, L HEART, PERC APPROACH (07/21/17) Family History: States: Unknown Family Hx - Social History Hx Tobacco Use: No Hx Alcohol Use: Yes Hx Substance Use: Yes ([id number]) - Immunization History Hx Tetanus Toxoid Vaccination: Yes Hx Influenza Vaccination: Yes (8 months ago) Hx Pneumococcal Vaccination: Yes (8 months) Review Of Systems Except As Marked, All Systems Reviewed And Found Negative. Genitourinary: Positive for: Dysuria, Hematuria Physical Exam - Physical Exam Appears: Non-toxic, No Acute Distress, Other (Obese male) Skin: Normal Color, Warm, Dry Head: Atraumatic, Normacephalic Eye(s): bilateral: Normal Inspection, PERRL, EOMI Nose: Normal Oral Mucosa: Moist Neck: Normal, Normal ROM Chest: Symmetrical Cardiovascular: Rhythm Regular, No Murmur Respiratory: Normal Breath Sounds, No Accessory Muscle Use, No Rales, No Rhonchi , No Wheezing Gastrointestinal/Abdominal: Soft, Tenderness (mild suprapubic tenderness), No Guarding, No Rebound Back: Normal Inspection, No CVA Tenderness Extremity: Bilateral: Atraumatic, Normal Color And Temperature, Normal ROM Neurological/Psych: Oriented x3, Normal Speech ED Course And Treatment - Laboratory Results Result Diagrams: 08/20/17 10:13 08/20/17 10:13 O2 Sat by Pulse Oximetry: 95 (RA) Pulse Ox Interpretation: Normal Progress Note: IV fluids administered. Blood work and urine ordered and reviewed. - Physician Consult Information Time Consulting Physician Contacted: 12:05 Physician Contacted: Farhad Mark Jr. Outcome Of Conversation: Discussed patient with his urologist, recommends stopping aspirin and Eliquis until hematuria resolves, and to follow up with him in the office. Patient already did preop labs, etc for prostate biopsy, to be done by Dr. Mark. Disposition Counseled Patient/Family Regarding: Studies Performed, Diagnosis, Need For Followup - Disposition Referrals: Farhad Mark Jr., MD [Staff Provider] - Disposition: HOME/ ROUTINE Disposition Time: 12:10 Condition: STABLE Additional Instructions: FOLLOW UP WITH DR MARK WITHIN 1 WEEK STOP TAKING ASPIRIN AND ELIQUIS UNTIL BLEEDING STOPS RETURN TO EMERGENCY ROOM IF YOU HAVE ANY WORSENING SYMPTOMS SEGUIMIENTO CON DR MARK DENTRO DE 1 SEMANA DEJE DE NIKKY ASPIRINA Y ELIQUIS HASTA QUE HAYA DEJAR DE PURGAR REGRESE AL TONIA DE EMERGENCIAS SI TIENE ALGUNOS SNTOMAS EMERGENTES Instructions: Blood in the Urine (Hematuria), Adult (DC) Forms: [facility] (Indonesian) Print Language: SWEDISH - POA Present On Arrival: None - Clinical Impression Clinical Impression: Hematuria - Scribe Statement The provider has reviewed the documentation as recorded by the Scribe (Damaris Sharpe) Provider Attestation: All medical record entries made by the Scribe were at my direction and personally dictated by me. I have reviewed the chart and agree that the record accurately reflects my personal performance of the history, physical exam, medical decision making, and the department course for this patient. I have also personally directed, reviewed, and agree with the discharge instructions and disposition.
[2017-08-20 11:27] LABS: SQUAMOUS EPITHIAL 1 /hpf (0-5); URINE BILIRUBIN NEGATIVE (NEGATIVE); URINE BLOOD 3+ (NEGATIVE); URINE CLARITY Hazy (Clear); URINE GLUCOSE (UA) NORMAL (Normal); URINE LEUKOCYTE ESTERASE NEG Leu/uL (Negative); URINE PROTEIN 1+ mg/dL (NEGATIVE); URINE UROBILINOGEN NORMAL mg/dL (0.2-1.0)
[2017-08-20 11:34] LABS: URINE COLOR DARK YELLOW (YELLOW)
[2017-08-20 13:09] VITALS: BP 144/95; PULSE 72; RESP 16; TEMP 98
== END 2017-08-20 13:00 | disposition home or self-care (01) ==
LOC: C.ER 09:21
DX: R31.9 Hematuria, unspecified (principal)
CPT/HCPCS: 80053; 81001; 85025; 85610; 85730; 87086; 87181; 99285; J7040

== ENCOUNTER 2017-08-21 19:20 | Emergency (ER) | payer MEDICAID ==
[2017-08-21 19:20] VITALS: PULSE 105; BMI 47.0
[2017-08-21] MEDS ORDERED: Morphine 4 MG/ML VIAL IV ONE (19:46)
[2017-08-21 19:51] VITALS: TEMP 98.2
[2017-08-21] MEDS ORDERED: Morphine 4 MG/ML VIAL ONE ×2 (19:56→22:00)
[2017-08-21 20:24] LABS: BASO % 0.4 % (0.0-2.0); EOS # 0.1 K/uL (0.0-0.7); EOS % 0.8 % (0.0-4.0); HEMOGLOBIN 13.7 g/dL (12.0-18.0); LYMPH # 1.1 K/uL (1.0-4.3); LYMPH % 9.4 % (20.0-40.0); MEAN CELL VOLUME 82.1 fL (80.0-94.0); MEAN CORPUSCULAR HEMOGLOBIN 26.2 pg (27.0-31.0); MEAN PLATELET VOLUME 8.1 fL (7.2-11.7); MONO # 0.6 K/uL (0.0-0.8); MONO % 5.5 % (0.0-10.0); NEUT # 9.5 K/uL (1.8-7.0); NEUT % 83.9 % (50.0-75.0); PLATELET COUNT 169 K/uL (130-400); RBC 5.23 Mil/uL (4.40-5.90); RED CELL DISTRIBUTION WIDTH 14.8 % (11.5-14.5); WHITE BLOOD COUNT 11.3 K/uL (4.8-10.8)
[2017-08-21 20:41] LABS: LYMPHOCYTE 10 % (20-40); MONOCYTE 3 % (0-10); NEUTROPHIL 87 % (50-75); PLATELET ESTIMATE SLIGHTLY DECREASED (NORMAL); TOTAL CELLS COUNTED 100
[2017-08-21 20:42] LABS: LARGE PLATELETS PRESENT
[2017-08-21 20:49] LABS: ALB/GLOB RATIO 1.2 (1.0-2.1); ALBUMIN 4.5 g/dL (3.5-5.0); ALT/SGPT 32 U/L (21-72); AST/SGOT 24 U/L (17-59); BLOOD UREA NITROGEN 17 mg/dL (9-20); CALCIUM 9.6 mg/dl (8.6-10.4); GFR AFRICAN-AMERICAN > 60; GFR NON-AFRICAN AMERICAN > 60; LIPASE 55 U/L (23-300)
[2017-08-21] MEDS ORDERED: Sodium Chloride 0.9% 1,000 ML IV ONE (20:55)
[2017-08-21] MEDS ORDERED: Sodium Chloride 0.9% 1,000 ML ONE (20:58)
[2017-08-21 21:03] VITALS: RESP 20
[2017-08-21 21:47] VITALS: BP 146/54; PULSE 61; O2SAT 99
--- NOTE | 2017-08-21 21:54 | CT ---
EXAM: CT Abdomen and Pelvis Without Intravenous Contrast EXAM DATE/TIME: 08/21/2017 8:07 PM CLINICAL HISTORY: 52 years old, male; Pain; Abdominal pain and other: Urinary retention; Patient HX: 1-5-15 images sent; Additional info: Abd pain TECHNIQUE: Axial computed tomography images of the abdomen and pelvis without intravenous contrast. All CT scans at this facility use one or more dose reduction techniques, viz.: automated exposure control; ma/kV adjustment per patient size (including targeted exams where dose is matched to indication; i.e. head); or iterative reconstruction technique. Coronal and sagittal reformatted images were created and reviewed. COMPARISON: No relevant prior studies available. FINDINGS: LUNG BASES: No significant abnormality seen. PLEURAL SPACE: Right diaphragmatic calcifications. These could represent calcified pleural plaques, from asbestos-related pleural disease, versus the sequela of a remote hemothorax. No evidence of significant pleural effusions. HEART: Heart appears moderately to markedly enlarged. ABDOMEN: LIVER: No acute abnormality of the liver identified. GALLBLADDER AND BILE DUCTS: Gallbladder is not seen, and may be contracted or surgically absent. No evidence of significant biliary ductal dilatation. PANCREAS: No CT evidence of acute pancreatitis. SPLEEN: No acute abnormality of the spleen identified. ADRENALS: No acute abnormality of the adrenal glands identified. KIDNEYS AND URETERS: 2 mm obstructing stone in the left distal ureter, image 179/series 3, causing mild to moderate left hydroureteronephrosis. There is also mild left perinephric stranding. STOMACH AND BOWEL: No acute abnormality of the stomach, small bowel or colon identified. No evidence of bowel obstruction. APPENDIX: Appendix is seen, and is within normal limits in appearance. PELVIS: BLADDER: Mild thickening of the bladder wall. REPRODUCTIVE: No acute abnormality of the reproductive organs is seen. ABDOMEN and PELVIS: INTRAPERITONEAL SPACE: No evidence of free intraperitoneal air or fluid. BONES/JOINTS: No acute fractures or other acute bony abnormality noted. SOFT TISSUES: Focal fluid in the deep subcutaneous fat of the back, at the level of the lumbar spine, most likely representing dependent edema. VASCULATURE: No evidence of abdominal aortic aneurysm. No evidence of periaortic hemorrhage. LYMPH NODES: No evidence of diffuse lymphadenopathy. TUBES, LINES AND DEVICES: Implantable cardioverter defibrillator (AICD) in place. IMPRESSION: - 2 mm obstructing stone in the left distal ureter, causing mild to moderate left hydroureteronephrosis. - Mild bladder wall thickening. This is a nonspecific finding, but can be seen with cystitis. Recommend clinical correlation. - See above for remaining findings.
--- NOTE | 2017-08-21 22:57 | C.PDOC ---
History Of Present Illness 52 year old male presents to the ED with complaints of acute onset of left flank plane radiating to the left groin. Patient was evaluated yesterday for hematuria by Dr. Dooley. Time Seen by Provider: 08/21/17 19:45 Chief Complaint (Nursing): Male Genitourinary History Per: Patient History/Exam Limitations: no limitations Onset/Duration Of Symptoms: Hrs Current Symptoms Are (Timing): Still Present Location Of Pain/Discomfort: RUQ Radiation Of Pain To:: Other (left groin) Past Medical History Reviewed: Historical Data, Nursing Documentation, Vital Signs Vital Signs: Last Vital Signs Temp 98.2 F 08/21/17 19:36 Pulse 61 08/21/17 21:47 Resp 20 08/21/17 21:47 BP 146/54 L 08/21/17 21:47 Pulse Ox 99 08/21/17 23:34 - Medical History PMH: Atrial Fibrillation, Bronchitis, CHF, HTN, Chronic Kidney Disease, Sleep Apnea Surgical History: Pacemaker (03/04/16) - [facility] Procedures FLUOROSCOPY OF MULT COR ART USING L OSM CONTRAST (07/21/17) MEASURE OF CARDIAC SAMPL & PRESSURE, L HEART, PERC APPROACH (07/21/17) Family History: States: Unknown Family Hx - Social History Hx Tobacco Use: No Hx Alcohol Use: Yes Hx Substance Use: Yes ([id number]) - Immunization History Hx Tetanus Toxoid Vaccination: Yes Hx Influenza Vaccination: Yes (8 months ago) Hx Pneumococcal Vaccination: Yes (8 months) Review Of Systems Except As Marked, All Systems Reviewed And Found Negative. Gastrointestinal: Positive for: Other (Left flank pain radiating to the left groin) Physical Exam - Physical Exam Appears: In Acute Distress (moderate to severe distress), Other (morbidly obese) Eye(s): bilateral: Normal Inspection Chest: Symmetrical, No Tenderness Cardiovascular: Rhythm Regular, No Murmur Respiratory: Normal Breath Sounds, No Rales, No Rhonchi, No Wheezing Gastrointestinal/Abdominal: Other (left abdominal pain. ) Male Genital: Normal Inspection, Other (bloody urine at urethromeatis) Extremity: Normal ROM (x4) Neurological/Psych: Oriented x3 Gait: Steady ED Course And Treatment - Laboratory Results Result Diagrams: 08/21/17 20:19 08/21/17 20:19 Lab Interpretation: Normal ECG: Interpreted By Me ECG Rhythm: Sinus Rhythm ECG Interpretation: Normal Rate From EC O2 Sat by Pulse Oximetry: 99 (RA) Pulse Ox Interpretation: Normal - Radiology CXR: Interpreted by Me CXR Interpretation: Yes: No Acute Disease Progress Note: toradol, morphine IV, IVF, Flomax PO Reevaluation Time: 22:55 Reassessment Condition: Improved - Physician Consult Information Outcome Of Conversation: 1999: d/w Dr. Dooley- ok to tx as above and f/u in office Thursday 08/24 Medical Decision Making Medical Decision Making: NO urinary retention: pt urinates normally and normal BUN/CREAT and bladder scan negative. Hematuria under investigation by Dr. Dooley already- may be related to anticoagulants. typical acute renal colic 2 mm, should pass- asleep in ED on final re-eval Disposition Doctor Will See Patient In The: Office Counseled Patient/Family Regarding: Studies Performed, Diagnosis - Disposition Referrals: Farhad Dooley Jr., MD [Staff Provider] - Disposition: HOME/ ROUTINE Disposition Time: 22:57 Condition: GOOD Additional Instructions: toby FRANCISCO agua para pasar la piedrita de 2 mm toby ibuprofeno 600 mg cada 6 horas carlos necessario para el dolor Sigue Flomax 0.4 mg diario para ayudar con la prostata y para ayudar en pasar la piedrita Sigue con Dr. Dooley en hernandez oficina el Rory 08/24: llama para hacer scar con el. Prescriptions: Tamsulosin [Flomax] 0.4 mg PO DAILY #10 cap Instructions: Renal Colic (DC) Forms: [employer] (Turkmen) Print Language: CYMRAES - Clinical Impression Clinical Impression: Abdominal pain - Scribe Statement The provider has reviewed the documentation as recorded by the Scribe Calvin Martin Provider Attestation: All medical record entries made by the Scribe were at my direction and personally dictated by me. I have reviewed the chart and agree that the record accurately reflects my personal performance of the history, physical exam, medical decision making, and the department course for this patient. I have also personally directed, reviewed, and agree with the discharge instructions and disposition.
--- NOTE | 2017-08-22 07:36 | RAD ---
PROCEDURE: Radiographs of the chest and abdomen (obstructive series) HISTORY: abd pain COMPARISON: Chest radiograph 07/20/2017. TECHNIQUE: AP radiograph of the chest, with upright and supine radiographs of the abdomen. FINDINGS: CHEST: No definite infiltrate is appreciate bilaterally. Cardiomegaly is apparent with mild pulmonary vascular congestion. No airspace disease bilaterally. Prior cardiac pacemaker/ AICD again evident. Other findings: None. ABDOMEN AND PELVIS: Bowel: Aerated bowel loops are normal in caliber the right ras abdomen with only trace gas identified at left ras abdomen and central abdomen. This is a nonspecific pattern. No significant interval formation is appreciated with exception of in the stomach, which is not a worsened finding. No definite free intraperitoneal gas or abnormal intra-abdominal calcifications. Bones: Multilevel thoracolumbar spondylosis identified. Other findings: None. IMPRESSION: 1. Nonspecific bowel gas pattern as discussed above. Further clinical correlation advised. No free intrarenal gas. 2. Mild pulmonary vascular congestion. Cardiomegaly again evident as well as permanent cardiac pacemaker/AICD.
--- NOTE | 2017-08-24 22:03 | CARD ---
APPROVED REPORT EKG Measurement Heart [id number] OR [id number] [id number] <Conclusion> Normal sinus rhythm Nonspecific T wave abnormality Abnormal ECG
== END 2017-08-21 23:11 | disposition home or self-care (01) ==
LOC: C.ER 19:20
DX: R10.9 Unspecified abdominal pain (principal); I48.91 Unspecified atrial fibrillation; I50.9 Heart failure, unspecified; I12.9 Hypertensive chronic kidney disease with stage 1 through stage 4 chronic kidney disease, or unspecified chronic kidney disease; N18.9 Chronic kidney disease, unspecified
CPT/HCPCS: 74022; 74176; 80053; 83690; 84484; 85025; 96361; 96374; 96375; 96376; 99285; J1885; J2270; J2405; J7040

== ENCOUNTER 2017-10-04 11:46 | Day surgery (SDC) | payer OTHER ==
[2017-10-04] MEDS ORDERED: Gentamicin 160 MG in Sodium Chloride 0.9% 100 ML IVPB ONE (12:00)
[2017-10-04] MEDS ORDERED: Ciprofloxacin 400mg/200ml D5W 400 MG/200 ML BAG IVPB ONE (14:37)
[2017-10-04] MEDS ORDERED: Lidocaine 2% Jelly (Uro-Jet) ONE (14:37)
[2017-10-04] MEDS ORDERED: Midazolam 2 MG/2 ML VIAL ONE ×2 (15:54→16:05)
--- NOTE | 2017-10-04 16:27 | PCM.SURG1 ---
Surgeon's Initial Post Op Note - Surgeon's Notes Surgeon: Miah Halftone Operator: CHRISTOPHER Type of Anesthesia: IV Sedation Anesthesia Administered By: STAFF Pre-Operative Diagnosis: BPH/Elevated psa Operative Findings: BPH w grady,mod grady Post-Operative Diagnosis: bph Elevated psa Operation Performed: TRans rectal us guided prostate bx Specimen/Specimens Removed: biopsy prostate Estimated Blood Loss: EBL {In ML}: 0 Blood Products Given: N/A Drains Used: No Drains Post-Op Condition: Good Date of Surgery/Procedure: 10/04/17 Time of Surgery/Procedure: 16:27
[2017-10-04 17:28] VITALS: RESP 18
[2017-10-04 18:24] VITALS: BP 160/86; PULSE 73; TEMP 97.7; O2SAT 99
--- NOTE | 2017-10-05 03:08 | OP ---
PROCEDURE DATE: 10/04/2017 PREOPERATIVE DIAGNOSIS: Benign prostatic hyperplasia, elevated prostate-specific antigen. POSTOPERATIVE DIAGNOSIS: Benign prostatic hyperplasia, elevated prostate-specific antigen. PROCEDURE: Transrectal-guided prostate biopsy via an ultrasonography and cystopanendoscopy. DESCRIPTION OF PROCEDURE: The patient was apprised of the risks and complications of the procedure and signed a full detailed informed consent and indicates willing to accept the risks. He is aware of the higher risk of the procedure due to his medical condition. He was brought into the room, and he was draped and prepped in the usual manner. Time-out was taken according to the rules and regulations of [facility]. The patient underwent ultrasound-guided transrectal biopsy. The patient tolerated this procedure well. He then was cystoscoped with #21 Storz panendoscope after re-gowning and gloving, and the pendulous and membranous urethra was normal. The prostatic urethra showed trilobar hypertrophy of the prostate. Bladder showed +2 to 3 trabeculation of the bladder. No significant bleeding occurred. The patient tolerated the procedure well and sent to the recovery area in good condition. Farhad Dooley MD
== END 2017-10-04 18:10 | disposition home or self-care (01) ==
LOC: C.SDS 11:46
PROVIDERS: ATTEND Urology
DX: R97.20 Elevated prostate specific antigen [PSA] (principal); N40.1 Benign prostatic hyperplasia with lower urinary tract symptoms; N13.8 Other obstructive and reflux uropathy
CPT/HCPCS: 52000; 55700; 88305; J0744; J1580

== ENCOUNTER 2017-12-22 10:26 | Observation (INO) | payer MEDICAID, OTHER ==
[2017-12-22 10:26] VITALS: PULSE 105; BMI 47.0
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
[2017-12-22 11:41] LABS: BASO % 0.5 % (0.0-2.0); EOS # 0.2 K/uL (0.0-0.7); EOS % 2.9 % (0.0-4.0); HEMOGLOBIN 13.6 g/dL (12.0-18.0); LYMPH % 15.9 % (20.0-40.0); MEAN CELL VOLUME 83.7 fL (80.0-94.0); MEAN CORPUSCULAR HEMOGLOBIN 27.8 pg (27.0-31.0); MEAN CORPUSCULAR HGB CONC 33.2 g/dL (33.0-37.0); MEAN PLATELET VOLUME 7.7 fL (7.2-11.7); MONO # 0.5 K/uL (0.0-0.8); MONO % 7.6 % (0.0-10.0); NEUT # 4.4 K/uL (1.8-7.0); NEUT % 73.1 % (50.0-75.0); NRBC % 0.1 % (0.0-2.0); RBC 4.89 Mil/uL (4.40-5.90); RED CELL DISTRIBUTION WIDTH 14.4 % (11.5-14.5); WHITE BLOOD COUNT 6.1 K/uL (4.8-10.8)
[2017-12-22 11:49] LABS: INR 1.1; PROTHROMBIN TIME 12.5 SECONDS (9.7-12.2)
--- NOTE | 2017-12-22 11:53 | RAD ---
Date of service: 12/22/2017 PROCEDURE: CHEST RADIOGRAPH, 1 VIEW HISTORY: Palpations COMPARISON: 08/19/2017 FINDINGS: LUNGS: Clear. PLEURA: No pneumothorax or pleural fluid seen. CARDIOVASCULAR: Normal heart size. AICD. OSSEOUS STRUCTURES: No significant abnormalities. VISUALIZED UPPER ABDOMEN: Normal. OTHER FINDINGS: None. IMPRESSION: No active disease.
[2017-12-22 12:00] LABS: ALB/GLOB RATIO 1.3 (1.0-2.1); ALT/SGPT 23 U/L (21-72); AST/SGOT 15 U/L (17-59); BLOOD UREA NITROGEN 16 mg/dL (9-20); GFR NON-AFRICAN AMERICAN > 60
[2017-12-22] MEDS ORDERED: Iodixanol 320 MG/ML 100 ML BOTTLE IV ONE (12:09)
[2017-12-22 12:13] LABS: B-TYPE NATRIURETIC PEPTIDE 1330 pg/mL (0-900)
--- NOTE | 2017-12-22 13:13 | CT ---
Date of service: 12/22/17 CTA chest PE protocol Indication: Shortness of breath rule out PE Technique: Contiguous axial images were obtained through the chest with intravenous contrast enhancement. Sagittal and coronal reconstructions were generated and reviewed. This CT exam was performed using 1 or more of the following dose reduction techniques: Automated exposure control, adjustment of the MAA and/or kV according to patient size, and/or use of iterative reconstruction technique. IV Contrast: 100 mL Visipaque 320 Radiation dose (DLP): 628.71 MGy-cm. Comparison: Chest x-ray performed 12/22/17 Findings: Visualized portions of the inferior thyroid gland appear unremarkable. The mediastinal and hilar vascular structures appear within normal limits. Cardiomegaly. Sub cm bilateral axillary lymph nodes. Sub cm mediastinal/prevascular lymph nodes. No large central or segmental pulmonary embolus evident. No focal consolidation. No pleural effusion. No pneumothorax. No suspicious pulmonary nodules measuring greater than 5 mm. Limited visualized portions of the upper abdomen: Right diaphragmatic calcifications. These could represent calcified pleural plaques, from asbestos-related pleural disease, versus the sequela of a remote hemothorax. Mild degenerative changes. Impression: No large central or segmental pulmonary embolus identified. Additional findings as above.
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
[2017-12-22 17:28] VITALS: O2SAT 97
[2017-12-22 17:55] LABS: BARBITURATES, UR NEGATIVE (NEGATIVE); BENZODIAZEPINES, UR NEGATIVE (NEGATIVE); OPIATES, UR NEGATIVE (NEGATIVE); PHENCYCLIDINE, UR NEGATIVE (NEGATIVE)
[2017-12-22 18:53] LABS: CK-MB 0.49 ng/mL (0.0-3.38)
[2017-12-22 21:17] LABS: SQUAMOUS EPITHIAL 1 /hpf (0-5); URINE AMORPHOUS SEDIMENT FEW /ul (<OCC); URINE BILIRUBIN NEGATIVE (NEGATIVE); URINE BLOOD NEGATIVE (NEGATIVE); URINE CLARITY Clear (Clear); URINE COLOR Yellow (YELLOW); URINE GLUCOSE (UA) NORMAL (Normal); URINE LEUKOCYTE ESTERASE NEG Leu/uL (Negative); URINE PROTEIN NEGATIVE (NEGATIVE); URINE UROBILINOGEN NORMAL mg/dL (0.2-1.0)
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
[2017-12-23 02:25] LABS: CK-MB 0.34 ng/mL (0.0-3.38)
[2017-12-23 07:35] LABS: BLOOD UREA NITROGEN 12 mg/dL (9-20); GFR NON-AFRICAN AMERICAN > 60; HDL CHOLESTEROL 23 mg/dL (30-70)
--- NOTE | 2017-12-23 07:49 | RAD ---
Chest x-ray two views History: Congestive heart failure. Comparison: 12/22/2017 Findings: Mild venous congestion. Right hilar prominence. Left-sided pacemaker. Mild cardiomegaly. Degenerative changes in the spine. Impression: Mild venous congestion. Right hilar prominence. Left-sided pacemaker. Mild cardiomegaly.
[2017-12-23 07:50] LABS: LDL CHOLESTEROL 93 mg/dL (0-129)
[2017-12-23 08:03] VITALS: RESP 20; TEMP 97.8
[2017-12-23 09:22] VITALS: BP 145/89
[2017-12-23] MEDS ORDERED: diltiaZEM 60 mg ER Cap PO SCH (10:00)
[2017-12-23] MEDS ORDERED: Metoprolol Succinate 50 mg XL Tab PO SCH (10:00)
[2017-12-23 13:36] VITALS: PULSE 77
--- NOTE | 2017-12-23 14:55 | CP.PCM.DIS ---
Provider - Provider Date of Admission: 12/22/17 13:55 Attending physician: Gregorio Skelton MD Primary care physician: [facility] Consults: cardiology (Dr. Del Valle) Time Spent in preparation of Discharge (in minutes): 45 Diagnosis - Discharge Diagnosis (1) Palpitations Status: Resolved Priority: High (2) Atrial fibrillation with controlled ventricular rate Status: Chronic Priority: High (3) HFrEF (heart failure with reduced ejection fraction) Status: Chronic Priority: High (4) Prostate cancer Status: Acute Priority: Low (5) HTN (hypertension) Status: Acute Priority: Medium (6) HLD (hyperlipidemia) Status: Acute Priority: Medium (7) MIKAYLA (obstructive sleep apnea) Status: Chronic Priority: Medium Hospital Course - Lab Results Lab Results: Most Recent Lab Values WBC 6.1 K/uL (4.8-10.8) 12/22/17 11:35 RBC 4.89 Mil/uL (4.40-5.90) 12/22/17 11:35 Hgb 13.6 g/dL (12.0-18.0) 12/22/17 11:35 Hct 40.9 % (35.0-51.0) 12/22/17 11:35 MCV 83.7 fL (80.0-94.0) 12/22/17 11:35 MCH 27.8 pg (27.0-31.0) 12/22/17 11:35 MCHC 33.2 g/dL (33.0-37.0) 12/22/17 11:35 RDW 14.4 % (11.5-14.5) 12/22/17 11:35 Plt Count 166 K/uL (130-400) 12/22/17 11:35 MPV 7.7 fL (7.2-11.7) 12/22/17 11:35 Neut % (Auto) 73.1 % (50.0-75.0) 12/22/17 11:35 Lymph % (Auto) 15.9 % (20.0-40.0) L 12/22/17 11:35 Hanson % (Auto) 7.6 % (0.0-10.0) 12/22/17 11:35 Eos % (Auto) 2.9 % (0.0-4.0) 12/22/17 11:35 Baso % (Auto) 0.5 % (0.0-2.0) 12/22/17 11:35 Neut # (Auto) 4.4 K/uL (1.8-7.0) 12/22/17 11:35 Lymph # (Auto) 1.0 K/uL (1.0-4.3) 12/22/17 11:35 Hanson # (Auto) 0.5 K/uL (0.0-0.8) 12/22/17 11:35 Eos # (Auto) 0.2 K/uL (0.0-0.7) 12/22/17 11:35 Baso # (Auto) 0.0 K/uL (0.0-0.2) 12/22/17 11:35 PT 12.5 SECONDS (9.7-12.2) H 12/22/17 11:35 INR 1.1 12/22/17 11:35 APTT 41 SECONDS (21-34) H 12/22/17 11:35 Sodium 144 mmol/L (132-148) 12/23/17 07:01 Potassium 3.8 mmol/L (3.6-5.2) 12/23/17 07:01 Chloride 103 mmol/L (98-107) 12/23/17 07:01 Carbon Dioxide 33 mmol/L (22-30) H 12/23/17 07:01 Anion Gap 13 (10-20) 12/23/17 07:01 BUN 12 mg/dL (9-20) 12/23/17 07:01 Creatinine 0.7 mg/dL (0.8-1.5) L 12/23/17 07:01 Est GFR ( Amer) > 60 12/23/17 07:01 Est GFR (Non-Af Amer) > 60 12/23/17 07:01 POC Glucose (mg/dL) 98 mg/dL (65-110) 12/23/17 06:24 Random Glucose 100 mg/dL (75-110) 12/23/17 07:01 Calcium 9.0 mg/dl (8.6-10.4) 12/23/17 07:01 Phosphorus 4.6 mg/dL (2.5-4.5) H 12/23/17 07:01 Magnesium 2.0 mg/dL (1.6-2.3) 12/23/17 07:01 Total Bilirubin 0.4 mg/dL (0.2-1.3) 12/22/17 11:35 AST 15 U/L (17-59) L D 12/22/17 11:35 ALT 23 U/L (21-72) 12/22/17 11:35 Alkaline Phosphatase 62 U/L (38-126) 12/22/17 11:35 Total Creatine Kinase 53 U/L (55-170) L 12/23/17 01:50 CK-MB (Mass) 0.34 ng/mL (0.0-3.38) 12/23/17 01:50 Troponin I < 0.0120 ng/mL (0.00-0.120) 12/23/17 01:50 NT-Pro-B Natriuret Pep 1330 pg/mL (0-900) H 12/22/17 11:35 Total Protein 7.0 g/dL (6.3-8.3) 12/22/17 11:35 Albumin 4.0 g/dL (3.5-5.0) 12/22/17 11:35 Globulin 3.1 gm/dL (2.2-3.9) 12/22/17 11:35 Albumin/Globulin Ratio 1.3 (1.0-2.1) 12/22/17 11:35 Triglycerides 245 mg/dL (0-149) H D 12/23/17 07:01 Cholesterol 162 mg/dL (0-199) 12/23/17 07:01 LDL Cholesterol Direct 93 mg/dL (0-129) 12/23/17 07:01 HDL Cholesterol 23 mg/dL (30-70) L 12/23/17 07:01 Free T4 1.17 ng/dL (0.78-2.19) 12/23/17 07:01 TSH 3rd Generation 3.23 mIU/L (0.46-4.68) 12/23/17 07:01 Urine Color Yellow (YELLOW) 12/22/17 20:59 Urine Clarity Clear (Clear) 12/22/17 20:59 Urine pH 7.0 (5.0-8.0) 12/22/17 20:59 Ur Specific [place] 1.025 (1.003-1.030) 12/22/17 20:59 Urine Protein Negative mg/dL (NEGATIVE) 12/22/17 20:59 Urine Glucose (UA) Normal mg/dL (Normal) 12/22/17 20:59 Urine Ketones Negative mg/dL (NEGATIVE) 12/22/17 20:59 Urine Blood Negative (NEGATIVE) 12/22/17 20:59 Urine Nitrate Negative (NEGATIVE) 12/22/17 20:59 Urine Bilirubin Negative (NEGATIVE) 12/22/17 20:59 Urine Urobilinogen Normal mg/dL (0.2-1.0) 12/22/17 20:59 Ur Leukocyte Esterase Neg Eulalia/uL (Negative) 12/22/17 20:59 Urine RBC (Auto) 1 /hpf (0-3) 12/22/17 20:59 Ur Squamous Epith Cells 1 /hpf (0-5) 12/22/17 20:59 Amorphous Sediment Few /ul (<OCC) H 12/22/17 20:59 Digoxin 0.7 ng/mL (0.8-2.0) L 12/23/17 01:50 Urine Opiates Screen Negative (NEGATIVE) 12/22/17 17:33 Urine Methadone Screen Negative (NEGATIVE) 12/22/17 17:33 Ur Barbiturates Screen Negative (NEGATIVE) 12/22/17 17:33 Ur Phencyclidine Scrn Negative (NEGATIVE) 12/22/17 17:33 Ur Amphetamines Screen Negative (NEGATIVE) 12/22/17 17:33 U Benzodiazepines Scrn Negative (NEGATIVE) 12/22/17 17:33 U Oth Cocaine Metabols Negative (NEGATIVE) 12/22/17 17:33 U Cannabinoids Screen Positive (NEGATIVE) H 12/22/17 17:33 - Hospital Course Hospital Course: Patient is a 52 year old male with a PMH of Atrial Fibrillation, prostate cancer , sleep apnea, Systolic HF with an EF of 20 (AICD in place - checked in July 2017), hemorrhoids, and HTN/HLD, who presents to the ED after an episode of palpitations and SOB. Patient reports that since the end of October 2017, he has been getting 5 minutes of radiation therapy M-F, weekly, for his prostate cancer. He is due to be finished with his radiation 01/13/2018. Occasionally during radiation he gets palpitations, but they promptly resolve so he has thought nothing of them. Today, however, he completed his usual radiation session and notes that he had sudden onset of palpitations ("felt like tachycardia"), more significant than prior episodes, that lasted for about 1 minute. He told his oncologist how he was feeling and was advised to come to the ED for evaluation. Patient admits to feeling anxiety when he goes for his treatments. He denies vision changes, headaches, back pain, dizziness, chest pain, or dyspnea. His ICD did not fire today when this episode occurred. He notes he is supposed to sleep with a CPAP machine, but he has not yet received it and does not usually sleep well. He is a former heavy drinker, who quit 3 years ago after he was diagnosed with heart problems. Now, at most, he drinks 1 beer per week. He was a light smoker more than 20 years ago and denies drug use , although his UDS was positive for cannabanoids. At time of admission, he is asymptomatic. He denies tachycardia or any other discomfort. Because of the radiation therapy and prostate cancer, he frequently feels like he has to urinate but cannot. He only takes 1 tablet of Eliquis per day; when he takes more than one he gets bloody diarrhea 2/2 hemorrhoids. CHADS VASC=2 (age, HF). Patient had a catheterization done on 07/24/2017 that showed dilated nonischemic cardiomyopathy with patent cardiac blood vessels. During hospital stay, patient has remained in Atrial Fibrillation with heart rate in the 70s, as seen on monitoring analyst. Blood work was reviewed, and showed a negative troponin and CKMB. His CBC and CMP were normal as were his TSH and T4 levels. However, his Triglycerides were elevated at 245 while his HDL was low at 23. Patient was started on a statin. He has had no recurrent episodes of palpitations or shortness of breath and slept well overnight with CPAP machine. His medications were reconciled with [facility] after which home medications were restarted appropriately. Patient's case was discussed with Dr. Del Valle, who advised that patient follow up for his Atrial Fibrillation with Dr. Sears. Call was placed to Dr. Sears's office, and discussed with Lovely, the intelligence officer. She will contact the patient to schedule a follow up appointment. Additionally, as per Dr. Del Valle's recommendation , ASA was discontinued. At time of discharge, patient is feeling well. He denies palpitations, dizziness , chest pain, changes in his vision, numbness or tingling in his extremities or shortness of breath. Medication prescriptions were administered and close follow up with the clinic was advised. Discharge Exam - Head Exam Head Exam: ATRAUMATIC, NORMAL INSPECTION, NORMOCEPHALIC - Eye Exam Eye Exam: EOMI, Normal appearance, PERRL - ENT Exam ENT Exam: Mucous Membranes Moist, Normal Exam - Neck Exam Neck exam: Normal Inspection - Respiratory Exam Respiratory Exam: Clear to PA & Lateral, NORMAL BREATHING PATTERN - Cardiovascular Exam Cardiovascular Exam: Irregular Rhythm, +S1, +S2. absent: Tachycardia - GI/Abdominal Exam GI & Abdominal Exam: Normal Bowel Sounds Additional comments: obese - Rectal Exam Rectal Exam: Deferred - Extremities Exam Extremities exam: normal capillary refill, normal inspection, pedal pulses present - Back Exam Back exam: NORMAL INSPECTION - Neurological Exam Neurological exam: Alert, CN II-XII Intact, Normal Gait, Oriented x3 - Psychiatric Exam Psychiatric exam: Normal Affect, Normal Mood - Skin Skin Exam: Dry, Intact, Normal Color, Warm Discharge Plan - Discharge Medications Prescriptions: Amiodarone [Cordarone] 200 mg PO DAILY #30 tab Apixaban [Eliquis] 5 mg PO DAILY #30 tab Digoxin 0.125 mg PO DAILY #30 tab diltiaZEM ER [Cardizem SR] 60 mg PO DAILY #30 c12 Furosemide [Lasix] 20 mg PO DAILY #30 tab Lisinopril [Zestril] 5 mg PO DAILY #30 tab Metoprolol Succinate XL [Toprol XL] 50 mg PO DAILY #30 tab Simvastatin 20 mg PO HS #30 tablet - Follow Up Plan Condition: STABLE Disposition: HOME/ ROUTINE Patient education suggested?: Yes Instructions: Atrial Fibrillation (DC), Heart Failure, Adult (DC), Apixaban, Amiodarone, Digoxin, Diltiazem, Furosemide, Lisinopril, Metoprolol, Simvastatin Additional Instructions: Patient is cleared for discharge as per Dr. Gregorio Skelton and Dr. Del Valle. The patient is instructed to follow-up with Dr. Kern at the [facility] within 1 week of discharge. Additionally, the patient will have an outpatient appointment with fitness specialist, Dr. Sears. Dr. Warner intelligence officer, Lovely, will call him to schedule an appointment. If the patient does not hear from her in the next 48 hours, he should call and schedule an appointment ([phone]). The patient will be discharged with the following prescriptions: Eliquis 5 mg- take one by mouth once a day Cardizem CD 60 mg- take one by mouth once a day Metoprolol 50 mg- take one by mouth once a day Lasix 20 mg- take one by mouth once a day Lisinopril 5 mg- take one by mouth once a day Amiodarone 200 mg- take one by mouth once a day Digoxin 125 mcg- take one by mouth once a day Simvastatin 20 mg- take one by mouth once a day These are the only medications he should be taking until Dr. Kern or Orion prescribe otherwise. If symptoms worsen or recur, patient is to return to the ED. Patient acknowledges understanding and agrees. El paciente est autorizado para el paul segn el Dr. Gregorio Skelton y el Dr. Del Valle. Al paciente se le instruye que theo un seguimiento con el Dr. Caban en la [facility] el [facility] dentro de 1 semana de lavinia sido dado de paul. Adems, el paciente tendr freddie scar ambulatoria con el electrofisilogo, el Dr. Sears. La gerente de la oficina del Lovely Vanegas, lo llamar para programar freddie scar. Si el paciente no recibe noticias suyas en las prximas 48 horas, debe llamar y programar freddie scar ([phone]). El paciente ser dado de paul con las siguientes prescripciones: Eliquis 5 mg- tome jesica por la boca freddie vez al da Cardizem CD 60 mg- tome jesica por la boca freddie vez al da Metoprolol 50 mg- tome jesica por la boca freddie vez al da Lasix 20 mg- tome jesica por la boca freddie vez al da Lisinopril 5 mg- tome jesica por la boca freddie vez al da Amiodarona 200 mg: tome jesica por va oral freddie vez al da Digoxin 125 mcg- tome jesica por la boca freddie vez al da Simvastatin 20 mg: tome jesica por va oral freddie vez al da Estos son los nicos medicamentos que debera neymar hasta que el Dr. Caban o Orion indiquen lo contrario. Si los sntomas empeoran o reaparecen, el paciente debe regresar al servicio de urgencias. El paciente reconoce comprensin y est de acuerdo. Referrals: [facility] [Outside] Greg Sears MD [Staff Provider] - Luis A Kern MD [Staff Provider] -
--- NOTE | 2017-12-23 19:25 | CARD ---
APPROVED REPORT Date of service: 12/23/2017 EKG Measurement Heart [id number] <Conclusion> Atrial fibrillation ST & T wave abnormality, consider lateral ischemia Abnormal ECG
--- NOTE | 2017-12-24 01:57 | CARD ---
APPROVED REPORT Date of service: 12/22/2017 EKG Measurement Heart [id number] <Conclusion> Atrial fibrillation Abnormal ECG
--- NOTE | 2017-12-24 02:22 | CARD ---
APPROVED REPORT Date of service: 12/22/2017 EKG Measurement Heart [id number] <Conclusion> Atrial fibrillation Abnormal ECG
== END 2017-12-23 15:30 | disposition home or self-care (01) ==
LOC: C.ER 10:26 → C.9E 13:55 → C.5S 17:13
PROVIDERS: ADMIT Family Medicine; ATTEND Family Medicine
DX: I48.91 Unspecified atrial fibrillation (principal); Z95.810 Presence of automatic (implantable) cardiac defibrillator; Z85.46 Personal history of malignant neoplasm of prostate; I50.22 Chronic systolic (congestive) heart failure; I42.0 Dilated cardiomyopathy; I11.0 Hypertensive heart disease with heart failure; G47.33 Obstructive sleep apnea (adult) (pediatric); F41.9 Anxiety disorder, unspecified; E78.5 Hyperlipidemia, unspecified; Z87.891 Personal history of nicotine dependence
CPT/HCPCS: 36415; 71045; 71046; 71275; 80048; 80053; 80061; 80162; 80299; 80324; 80345; 80346; 80349; 80353; 80358; 80361; 81001; 82948; 83735; 83880; 83992; 84100; 84439; 84443; 84484; 85025; 85610; 85730; 93005; 94660; 94760; G0378; Q9967

== ENCOUNTER 2018-01-31 09:45 | Emergency (ER) | payer OTHER ==
[2018-01-31 09:45] VITALS: PULSE 105
[2018-01-31 09:56] VITALS: BMI 44.1
[2018-01-31] MEDS ORDERED: Albuterol 0.083% Inhal Sol (2.5 mg/3 mL) UD IH STA ×2 (10:14→12:43)
[2018-01-31] MEDS ORDERED: Albuterol 0.083% Inhal Sol (2.5 mg/3 mL) UD ONE ×2 (10:32→12:50)
[2018-01-31 11:05] VITALS: RESP 18
[2018-01-31 11:36] LABS: BLOOD UREA NITROGEN 17 mg/dL (9-20); GFR NON-AFRICAN AMERICAN > 60
[2018-01-31 11:37] LABS: ALB/GLOB RATIO 1.3 (1.0-2.1); ALBUMIN 4.2 g/dL (3.5-5.0); ALT/SGPT 18 U/L (21-72); AST/SGOT 37 U/L (17-59)
[2018-01-31 11:43] LABS: B-TYPE NATRIURETIC PEPTIDE 630 pg/mL (0-900); CK-MB 0.99 ng/mL (0.0-3.38)
--- NOTE | 2018-01-31 11:49 | C.PDOC ---
History Of Present Illness 52 y/o male with history of MIKAYLA, A-fib, Prostate CA stage 2, CHF and HTN presents to ED with c/o sob and non productive cough for 3 days associated with pleuritic chest pain. Patient reports last chemo 01/18/18 and denies fever, chill s,nausea, vomiting or any other complaints at this time. Time Seen by Provider: 01/31/18 10:02 Chief Complaint (Nursing): Shortness Of Breath History Per: Patient History/Exam Limitations: no limitations Onset/Duration Of Symptoms: Days Current Symptoms Are (Timing): Still Present Initiating Event: Upper Respiratory Illness Past Medical History Reviewed: Historical Data, Nursing Documentation, Vital Signs Vital Signs: Last Vital Signs Temp 98.5 F 01/31/18 09:56 Pulse 84 01/31/18 10:53 Resp 18 01/31/18 10:53 BP 120/73 01/31/18 10:53 Pulse Ox 96 01/31/18 10:53 - Medical History PMH: Atrial Fibrillation, Bronchitis, Cardia Arrhythmia (A-FIB), CHF, HTN, Sleep Apnea Surgical History: No Surg Hx - [facility] Procedures FLUOROSCOPY OF MULT COR ART USING L OSM CONTRAST (07/21/17) MEASURE OF CARDIAC SAMPL & PRESSURE, L HEART, PERC APPROACH (07/21/17) Family History: States: No Known Family Hx - Social History Hx Tobacco Use: No Hx Alcohol Use: Yes Hx Substance Use: Yes ([id number]) - Immunization History Hx Tetanus Toxoid Vaccination: Yes Hx Influenza Vaccination: Yes (8 months ago) Hx Pneumococcal Vaccination: Yes (8 months) Review Of Systems Constitutional: Negative for: Fever, Chills Cardiovascular: Positive for: Chest Pain Respiratory: Positive for: Cough, Shortness of Breath, Pleuritic Pain Gastrointestinal: Negative for: Nausea, Vomiting Skin: Negative for: Rash Physical Exam - Physical Exam Appears: Non-toxic, No Acute Distress, Other (Coughing) Skin: Warm, Dry, No Rash Head: Atraumatic, Normacephalic Eye(s): bilateral: Normal Inspection Oral Mucosa: Moist Neck: Supple Cardiovascular: Rhythm Irregular Respiratory: Rales (bilateral), No Rhonchi, Wheezing (expiratory) Gastrointestinal/Abdominal: Soft, No Tenderness, No Guarding, No Rebound, Other (obese abdomen) Extremity: Pedal Edema (tracing pitting ), No Calf Tenderness, Capillary Refill (<2 seconds), No Deformity Pulses: Left Dorsalis Pedis: Normal, Right Dorsalis Pedis: Normal Neurological/Psych: Oriented x3, Normal Speech (Speaking in full sentences) ED Course And Treatment - Laboratory Results Result Diagrams: 01/31/18 11:58 01/31/18 11:07 ECG: Interpreted By Me, Viewed By Me ECG Rhythm: Atrial Fibrillation Interpretation Of ECG: Normal access, ST depressioin on V4,V5 AND v6 Rate From EC O2 Sat by Pulse Oximetry: 96 Progress Note: Blood work, EKG, CXR, Neb treatment Disposition Counseled Patient/Family Regarding: Studies Performed, Diagnosis, Need For Follo wup, Rx Given - Disposition Referrals: Elvia Viera MD [Medical Doctor] - Disposition: HOME/ ROUTINE Disposition Time: 15:45 Condition: STABLE Additional Instructions: FOLLOW UP WITH YOUR DOCTOR IN 1-2 DAYS, AND WITH CARDIOLOGY WITHIN 1 WEEK RETURN TO ER IMMEDIATELY IF YOU HAVE ANY WORSENING/CONCERNING SYMPTOMS Prescriptions: Albuterol HFA [Ventolin HFA 90 mcg/actuation (8 g)] 0.09 mg IH Q4 PRN #1 puff PRN Reason: Wheezing Benzonatate [Tessalon Perles] 100 mg PO BID PRN #15 sgl PRN Reason: Cough predniSONE [predniSONE Tab] 40 mg PO DAILY #6 tab Instructions: Viral Upper Respiratory Infection, Adult (DC), Wheezing Forms: [facility] (Ukrainian) Print Language: SETSWANA - Clinical Impression Clinical Impression: Upper respiratory infection, Bronchospasm - Scribe Statement The provider has reviewed the documentation as recorded by the Kenrick German All medical record entries made by the Carinibezequiel were at my direction and personally dictated by me. I have reviewed the chart and agree that the record accurately reflects my personal performance of the history, physical exam, medical decision making, and the department course for this patient. I have also personally directed, reviewed, and agree with the discharge instructions and disposition.
--- NOTE | 2018-01-31 11:51 | C.PDOC ---
Time Seen by Provider: 01/31/18 10:02 Chief Complaint (Nursing): Shortness Of Breath Past Medical History Vital Signs: Last Vital Signs Temp 98.5 F 01/31/18 09:56 Pulse 84 01/31/18 10:53 Resp 18 01/31/18 10:53 BP 120/73 01/31/18 10:53 Pulse Ox 96 01/31/18 10:53 - Medical History PMH: Atrial Fibrillation, Bronchitis, Cardia Arrhythmia (A-FIB), CHF, HTN, Sleep Apnea Surgical History: - [facility] Procedures FLUOROSCOPY OF MULT COR ART USING L OSM CONTRAST (07/21/17) MEASURE OF CARDIAC SAMPL & PRESSURE, L HEART, PERC APPROACH (07/21/17) Family History: States: Unknown Family Hx - Social History Hx Tobacco Use: No Hx Alcohol Use: Yes Hx Substance Use: Yes ([id number]) - Immunization History Hx Tetanus Toxoid Vaccination: Yes Hx Influenza Vaccination: Yes (8 months ago) Hx Pneumococcal Vaccination: Yes (8 months) ED Course And Treatment - Laboratory Results Result Diagrams: 01/31/18 11:07 O2 Sat by Pulse Oximetry: 96 Disposition - Disposition
[2018-01-31 12:02] LABS: BASO % 0.5 % (0.0-2.0); EOS # 0.1 K/uL (0.0-0.7); EOS % 1.9 % (0.0-4.0); HEMOGLOBIN 12.7 g/dL (12.0-18.0); LYMPH # 0.7 K/uL (1.0-4.3); LYMPH % 11.2 % (20.0-40.0); MEAN CELL VOLUME 83.8 fL (80.0-94.0); MEAN CORPUSCULAR HEMOGLOBIN 27.9 pg (27.0-31.0); MEAN CORPUSCULAR HGB CONC 33.3 g/dL (33.0-37.0); MONO # 0.5 K/uL (0.0-0.8); MONO % 8.1 % (0.0-10.0); NEUT # 4.9 K/uL (1.8-7.0); NEUT % 78.3 % (50.0-75.0); RBC 4.56 Mil/uL (4.40-5.90); RED CELL DISTRIBUTION WIDTH 14.3 % (11.5-14.5); WHITE BLOOD COUNT 6.3 K/uL (4.8-10.8)
[2018-01-31 12:17] LABS: INR 1.3; PROTHROMBIN TIME 14.3 SECONDS (9.7-12.2)
--- NOTE | 2018-01-31 13:15 | RAD ---
HISTORY: Shortness of breath COMPARISON: 12/22/2017. TECHNIQUE: Chest PA and lateral FINDINGS: LINES AND TUBES: None. LUNG AND PLEURA: The lungs are well inflated. There is mild pulmonary venous congestion. No focal consolidation. No pleural effusion or pneumothorax. HEART AND MEDIASTINUM: There is moderate cardiomegaly. The hilar and mediastinal contours are within normal limits. SKELETAL STRUCTURES: The bony structures are within normal limits for the patient's age. VISUALIZED UPPER ABDOMEN: Normal. OTHER FINDINGS: None. IMPRESSION: No active pulmonary disease.
[2018-01-31] MEDS ORDERED: Iodixanol 320 mg/ml 150 ml Bottle IV ONE ×2 (13:36→14:04)
[2018-01-31] MEDS ORDERED: Iohexol 300 100 ML IJ ONE (14:13)
--- NOTE | 2018-01-31 15:12 | CT ---
Date of service: 01/31/2018 PROCEDURE: CT Chest with contrast (Pulmonary Angiogram) HISTORY: Shortness of breath. History of prostate CA r/o PE COMPARISON: Comparison made with CT chest dated 12/22/2017. TECHNIQUE: Axial computed tomography images were obtained of the chest in the pulmonary arterial phase of enhancement. Coronal and sagittal reformatted images were created and reviewed. Intravenous contrast dose: 100 cc Omnipaque 300 Radiation dose: Total exam DLP = 684.24 mGy-cm. This CT exam was performed using one or more of the following dose reduction techniques: Automated exposure control, adjustment of the mA and/or kV according to patient size, and/or use of iterative reconstruction technique. FINDINGS: PULMONARY ARTERIES: The visualized pulmonary trunk, right and left main, lobar segmental and proximal subsegmental branches of the pulmonary arteries appear well opacified with no definitive filling defects seen to suggest acute central pulmonary embolus. Pulmonary trunk measures approximately 3.6 cm. AORTA: No acute findings. No thoracic aortic aneurysm. Mild dilatation the ascending thoracic aorta measuring 4.1 cm. Descending thoracic aorta measures 2.8 cm. LUNGS: . Mild bibasilar atelectasis the the minor nodular presumed scarring changes left lingular region PLEURAL SPACES: Unremarkable. No effusion or pneumothorax. Linear calcifications seen along the posterior pleural surface right hemidiaphragm possibly representing sequela of old inflammation however rule out prior exposure to asbestos. HEART: Heart is mildly enlarged. No significant pericardial effusion. LYMPH NODES: There are several small nonspecific mediastinal lymph nodes.. No significant hilar adenopathy. Small hiatal hernia. Central airways midline and patent with no large central endoluminal lesions.. BONES, CHEST WALL: Minor multilevel degenerative spondylosis of the thoracic as well as the lower cervical and upper lumbar spine. . Note made of a small elliptical shaped lipoma left anterolateral chest wall. OTHER FINDINGS: Note made of a small ring-like calcification inferior aspect left lobe thyroid gland.. Thyroid ultrasound follow-up recommended IMPRESSION: No evidence of large acute central pulmonary embolus. Redemonstrated is curvilinear calcification right posterior hemidiaphragm likely postinflammatory. Rule out prior exposure to asbestos.. Mild bibasilar atelectasis and or scarring changes.. Minor nodular presumed scarring changes left lingular region Cardiomegaly. Small ring-like calcification inferior aspect left lobe thyroid gland. Recommend follow-up thyroid ultrasound Elliptical shaped lipoma left anterolateral chest wall
[2018-01-31] MEDS ORDERED: Digoxin 125 mcg (0.125 mg) Tab PO STA (15:28)
[2018-01-31] MEDS ORDERED: Digoxin 125 mcg (0.125 mg) Tab ONE (15:41)
[2018-01-31 15:49] VITALS: BP 110/68; PULSE 68; TEMP 98.8; O2SAT 100
--- NOTE | 2018-02-02 12:46 | CARD ---
APPROVED REPORT Date of service: 01/31/2018 EKG Measurement Heart [id number] <Conclusion> Atrial fibrillation Nonspecific ST and T wave abnormality Abnormal ECG
== END 2018-01-31 15:49 | disposition home or self-care (01) ==
LOC: C.ER 09:45
DX: J06.9 Acute upper respiratory infection, unspecified (principal); J98.01 Acute bronchospasm
CPT/HCPCS: 71046; 71275; 80053; 80162; 82550; 82553; 83880; 84484; 85025; 85610; 85730; 93005; 94640; 96374; 99285; J1940; Q9967

== ENCOUNTER 2018-08-03 12:18 | Emergency (ER) | payer OTHER ==
[2018-08-03 12:18] VITALS: PULSE 105; BMI 44.1
[2018-08-03 12:58] VITALS: O2SAT 98
--- NOTE | 2018-08-03 14:12 | C.PDOC ---
Time Seen by Provider: 08/03/18 13:32 Chief Complaint (Nursing): Hip Pain Past Medical History Vital Signs: Last Vital Signs Temp 98.4 F 08/03/18 12:53 Pulse 81 08/03/18 12:53 Resp 18 08/03/18 12:53 BP 117/72 08/03/18 12:53 Pulse Ox 98 08/03/18 12:53 - Medical History PMH: Atrial Fibrillation, Bronchitis, Cardia Arrhythmia (A-FIB), CHF, HTN, Sleep Apnea Surgical History: - [facility] Procedures FLUOROSCOPY OF MULT COR ART USING L OSM CONTRAST (07/21/17) MEASURE OF CARDIAC SAMPL & PRESSURE, L HEART, PERC APPROACH (07/21/17) Family History: States: Unknown Family Hx - Social History Hx Tobacco Use: No Hx Alcohol Use: Yes Hx Substance Use: Yes ([id number]) - Immunization History Hx Tetanus Toxoid Vaccination: Yes Hx Influenza Vaccination: Yes (8 months ago) Hx Pneumococcal Vaccination: Yes (8 months) ED Course And Treatment O2 Sat by Pulse Oximetry: 98 - Other Rad R hip X-Ray: Interpreted by Me (+ acetabular arthritis R>L) Medical Decision Making Medical Decision Making: chronic R hip arthritis, prob related to morbid obesity (348#) NSAIDS, weight loss MIKAYLA refer back to Dr. Cantu for CPAP Disposition Doctor Will See Patient In The: Office Counseled Patient/Family Regarding: Studies Performed, Diagnosis - Disposition Referrals: [facility] [Outside] [facility] [Outside] [facility] [Outside] Behzad Cantu MD [Staff Provider] - Disposition Time: 14:12 Additional Instructions: artiritis de la cadera derecha: ibuprofeno 400-600 mg cada 6 horas carlos necessario baja de peso Apnea de sueno: Kam Cantu especialist de estudios de sueno para buscar hernandez mascara de sueno. Cardiovascular sigue con la [facility] para seguir evaluacion' del marcapaso Instructions: Osteoarthritis, Obstructive Sleep Apnea, Adult (DC) Forms: [facility] (Setswana) Print Language: BULGARIAN - Clinical Impression Clinical Impression: Hip pain, Sleep apnea in adult
--- NOTE | 2018-08-03 14:19 | C.PDOC ---
History Of Present Illness 53 y/o male presents to the ER complaining of right hip pain which has been present for the past 6 months. Patient states that he has pain mainly in the lateral aspect of the hip. Patient reports that he has minimal discomfort when he bends and the pain is worse with walking. He notes that he had an injection in the right gluteus in [place] which made the pain worse. He states that he has not been taking medications for the pain. Patient is also requesting for his pacemaker to be checked because he has missed his clinic appointments for the past 3 months. He also notes that he has history of sleep apnea and he has not been able to get a sleep mask after he had 3 sleep tests.Denies having fever,chills, CP,SOB, nausea, vomiting, and weakness and numbness in hips. Of note, patient has body weight 348 lbs, he denies intentional weight loss. Time Seen by Provider: 08/03/18 13:32 Chief Complaint (Nursing): Hip Pain History Per: Patient History/Exam Limitations: no limitations Onset/Duration Of Symptoms: Days Current Symptoms Are (Timing): Still Present Severity: Moderate Past Medical History Reviewed: Historical Data, Nursing Documentation, Vital Signs Vital Signs: Last Vital Signs Temp 98.4 F 08/03/18 12:53 Pulse 81 08/03/18 12:53 Resp 18 08/03/18 12:53 BP 117/72 08/03/18 12:53 Pulse Ox 98 08/03/18 12:53 - Medical History PMH: Atrial Fibrillation, Bronchitis, Cardia Arrhythmia (A-FIB), CHF, HTN, Sleep Apnea Surgical History: Other Surgeries: Hx of surgeries - [facility] Procedures FLUOROSCOPY OF MULT COR ART USING L OSM CONTRAST (07/21/17) MEASURE OF CARDIAC SAMPL & PRESSURE, L HEART, PERC APPROACH (07/21/17) Family History: States: No Known Family Hx - Social History Hx Tobacco Use: No Hx Alcohol Use: Yes Hx Substance Use: Yes ([id number]) - Immunization History Hx Tetanus Toxoid Vaccination: Yes Hx Influenza Vaccination: Yes (8 months ago) Hx Pneumococcal Vaccination: Yes (8 months) Review Of Systems Except As Marked, All Systems Reviewed And Found Negative. Constitutional: Negative for: Fever, Chills Cardiovascular: Negative for: Chest Pain Respiratory: Negative for: Shortness of Breath Gastrointestinal: Negative for: Nausea, Vomiting, Abdominal Pain Musculoskeletal: Positive for: Other (right hip pain) Neurological: Negative for: Weakness, Numbness Physical Exam - Physical Exam Appears: Non-toxic, No Acute Distress, Other (morbidly obese, hot potatoe voice, ) Skin: Normal Color, Warm, Dry Head: Atraumatic, Normacephalic Eye(s): bilateral: Normal Inspection Nose: Normal Oral Mucosa: Moist Tongue: Other (large tongue, thick submandibular tissues) Throat: No Erythema, No Exudate, Other (small oral pharynx) Neck: Supple Chest: Symmetrical, Other (pacemaker to left upper chest) Cardiovascular: Rhythm Regular Respiratory: Normal Breath Sounds, No Rales, No Rhonchi, No Wheezing Gastrointestinal/Abdominal: Normal Exam, Soft, No Tenderness, No Guarding, No Rebound Extremity: Normal ROM (right hip), No Tenderness (right hip), No Swelling (right hip) Neurological/Psych: Oriented x3, Normal Speech ED Course And Treatment O2 Sat by Pulse Oximetry: 98 (RA) Pulse Ox Interpretation: Normal - Other Rad R hip X-Ray: Interpreted by Me, Viewed By Me Interpretation: Interpreted by Me (+ acetabular arthritis R>L) Medical Decision Making Medical Decision Making: Plan: --Motrin PO --X-Ray-Hip chronic R hip arthritis, prob related to morbid obesity (348#) NSAIDS, weight loss MIKAYLA refer back to Dr. Cantu for CPAP Disposition Doctor Will See Patient In The: Office Counseled Patient/Family Regarding: Studies Performed, Diagnosis - Disposition Referrals: [facility] [Outside] [employer] [facility] [Outside] [facility] [Outside] Behzad Cantu MD [Staff Provider] - Disposition: HOME/ ROUTINE Disposition Time: 15:00 Condition: GOOD Additional Instructions: artiritis de la cadera derecha: ibuprofeno 400-600 mg cada 6 horas carlos necessario baja de peso Apnea de sueno: Kam Cantu especialist de estudios de sueno para buscar hernandez mascara de sueno. Cardiovascular sigue con la [facility] para seguir evaluacion' del marcapaso Instructions: Osteoarthritis, Obstructive Sleep Apnea, Adult (DC) Forms: [employer] (Citizen Of [place]) Print Language: SENEGALESE - Clinical Impression Clinical Impression: Hip pain, Sleep apnea in adult - Scribe Statement The provider has reviewed the documentation as recorded by the Scribe Haim De Los Santos Provider Attestation: All medical record entries made by the Scribe were at my direction and personally dictated by me. I have reviewed the chart and agree that the record accurately reflects my personal performance of the history, physical exam, medical decision making, and the department course for this patient. I have also personally directed, reviewed, and agree with the discharge instructions and disposition.
[2018-08-03 14:28] VITALS: BP 145/78; PULSE 74; RESP 17; TEMP 98.2
--- NOTE | 2018-08-03 14:43 | RAD ---
Date of service: 08/03/2018 PROCEDURE: RIGHT HIP WITH PELVIS HISTORY: chroni R hip pain COMPARISON: Abdomen pelvis CT without contrast 08/21/2017. TECHNIQUE: Two views submitted. Frog-leg right hip views submitted as well as frontal view of the pelvis. FINDINGS: No acute fracture or dislocation of the right hip joint is identified. Pelvic ring is remarkable for borderline diastasis of the symphysis pubis, unchanged in the interval. Iliac bones appear intact as well as the pubic bones and innominate bones. Sacrum is intact with only limited degenerative changes seen at the bilateral sacroiliac joints. Moderate degenerative joint disease seen at the bilateral hip joints. Local soft tissues appear unremarkable diffusely. IMPRESSION: Bilateral hip and sacroiliac joint degenerative changes. No fracture identified throughout the pelvic ring or the right hip joint. No right hip dislocation. Borderline symphysis pubis diastasis stable compared prior CT 08/21/2017.
== END 2018-08-03 14:27 | disposition home or self-care (01) ==
LOC: C.ER 12:18
DX: M25.551 Pain in right hip (principal); G47.30 Sleep apnea, unspecified; I48.91 Unspecified atrial fibrillation; I50.9 Heart failure, unspecified; I10 Essential (primary) hypertension

== ENCOUNTER 2018-08-15 08:45 | Outpatient (CLI) | payer OTHER | END 2018-08-15 08:46 | disposition home or self-care (01) | LOC: C.RADH 08:45 ==